=== PATIENT | female | born 1995 | race Caucasian/White ===

== ENCOUNTER 2018-01-11 21:46 | Emergency (ER) | payer OTHER ==
[~2018-01-11] VITALS: Ht 162.6 cm; Wt 68.9 kg
[2018-01-12] MEDS ORDERED: LIDOCAINE 2% VISCOUS 15 ML UDC PO ONE (00:30)
[2018-01-12] MEDS ORDERED: AZITHROMYCIN 250 MG TAB (ZITHROMAX) PO SCH (01:15)
[2018-01-12] MEDS ORDERED: ACYCLOVIR 400 MG TABLET (ZOVIRAX) PO ONE (01:15)
[2018-01-12] MEDS ORDERED: metroNIDAZOLE 500 MG (FLAGYL) TAB PO ONE (01:15)
[2018-01-12] MEDS ORDERED: LIDOCAINE 1% INJ 20 ML 20 ML VIAL INJ ONE ×2 (01:15→02:00)
[2018-01-12] MEDS ORDERED: cefTRIAXone 1 GM/10 ML for IV (ROCEPHIN) IM ONE (01:15)
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
[2018-01-12] MEDS ORDERED: ACYC400T PO (01:41)
[2018-01-12] MEDS ORDERED: cefTRIAXone 1 GM/10 ML for IV (ROCEPHIN) IM STA (01:52)
[2018-01-12] MEDS ORDERED: cefTRIAXone 1,000 MG/2.86 ml vial (IM ONLY) IM ONE (02:15)
[2018-01-12 02:21] VITALS: BP 116/88
== END 2018-01-12 02:21 | disposition home or self-care (01) ==
LOC: EDUNIT# 21:46 → ER 21:48
DX: A59.01 Trichomonal vulvovaginitis (principal); Z90.89 Acquired absence of other organs; Z87.19 Personal history of other diseases of the digestive system
CPT/HCPCS: 36415; 84703; 87070; 87210; 87252; 87491; 87591; 99284

== ENCOUNTER 2020-04-25 15:55 | Inpatient (IN) | payer BC, OTHER ==
[~2020-04-25] VITALS: Ht 162.6 cm; Wt 58.4 kg
[~2020-04-25 15:55] MED LIST: ACYC400T PO
--- NOTE | 2020-04-25 16:32 | NUR ---
SONU THORNE presented to unit via WHEELCHAIR from HOME, accompanied by STAFF, with c/o HYPEREMESIS. SONU THORNE weighed, gowned, voided, and to bed. EFHM and TOCO applied, VS taken. SONU THORNE oriented to bed controls, call light, TV, heat, and A/C controls.
[2020-04-25 16:40] VITALS: BP 109/66
[2020-04-25] MEDS ORDERED: PROMETHAZINE INJ 25 MG/ML (PHENERGAN) AMP IVP PRN (16:45)
[2020-04-25 17:05] VITALS: BP 109/66
[2020-04-25] MEDS: LACTATED RINGERS 1,000 ML IV SCH ×2 (17:06→23:41)
[2020-04-25] MEDS: ONDANSETRON 4 MG/2 ML (SDV) Z0FRAN IV PRN (17:07)
[2020-04-25 17:14] LABS: BASOPHILS % (AUTO) 0 % (0-10); EOSINOPHILS % (AUTO) 0 % (0-10); HEMATOCRIT 39 % (35-52); HEMOGLOBIN 13.6 g/dL (11.5-16.0); LYMPHOCYTES # (AUTO) 1.2 10^3/uL (1.0-4.0); LYMPHOCYTES % (AUTO) 9 % (12-44); MEAN CORPUSCULAR HEMOGLOBIN 31 pg (25-34); MEAN CORPUSCULAR HGB CONC 35 g/dL (32-36); MEAN CORPUSCULAR VOLUME 88 fL (80-99); MEAN PLATELET VOLUME 11.3 fL (9.0-12.2); MONOCYTES # (AUTO) 0.5 10^3/uL (0.0-1.0); MONOCYTES % (AUTO) 4 % (0-12); NEUTROPHILS # (AUTO) 11.9 10^3/uL (1.8-7.8); NEUTROPHILS % (AUTO) 87 % (42-75); PLATELET COUNT 298 10^3/uL (130-400); WHITE BLOOD COUNT 13.7 10^3/uL (4.3-11.0)
[2020-04-25 17:24] LABS: ALBUMIN 4.7 GM/DL (3.2-4.5); CHLORIDE 101 MMOL/L (98-107); POTASSIUM 3.4 MMOL/L (3.6-5.0); SODIUM 138 MMOL/L (135-145)
[2020-04-25 17:25] LABS: CALCIUM 9.6 MG/DL (8.5-10.1)
[2020-04-25 17:26] LABS: GLUCOSE 97 MG/DL (70-105)
[2020-04-25 17:27] LABS: TOTAL PROTEIN 7.7 GM/DL (6.4-8.2)
[2020-04-25 17:28] LABS: BILIRUBIN,TOTAL 1.7 MG/DL (0.1-1.0); CARBON DIOXIDE 25 MMOL/L (21-32)
[2020-04-25 17:30] LABS: ALKALINE PHOSPHATASE 56 U/L (40-136); CREATININE SERUM 0.75 MG/DL (0.60-1.30); GFR ESTIMATED > 60
[2020-04-25 17:31] LABS: BUN/CREATININE RATIO 25
[2020-04-25 17:33] LABS: ALANINE AMINOTRANSFERASE 32 U/L (0-55); MAGNESIUM 2.1 MG/DL (1.6-2.4)
[2020-04-25 17:41] LABS: LYMPHOCYTES % (MANUAL) 8 %; MONOCYTES % (MANUAL) 3 %; NEUTROPHILS % (MANUAL) 89 %; RBC MORPH NORMAL
--- NOTE | 2020-04-25 18:50 | History & Physical-OB/GYN ---
CHEYANNE CUNHA III MED STUDENT 04/25/20 1850: OB - Chief Complaint & HPI Date/Time Date of Admission: Date of Admission: Apr 25, 2020 at 16:32 Chief Complaint/History OB-Reason for Admission/Chief: Medical Complication (Hyperemesis with intractable nausea for 2-3 days) Hx : 1 Hx Last Menstrual Period: LMP on 03/15/2020 Gestational Age in Weeks: 6 Other reason for admission: Pt presented to clinic on 04/25/2020 2/2 intractable nausea with persistent vomit ing. She notes that she has been nauseous for about a week, but progressed to persistent vomiting 2-3 days ago. She notes that she is not able to keep any solid food or liquids down. She can eat/drink something and 5-10 minutes later she will be throwing it up. She has some associated sore throat that is likely 2/2 repetitive vomiting episodes. LMP was 03/15/2020. Pt notes a positive test at walk in clinic on 04/24/2020 giving estimated GA of 6w. She has had some lower abdominal pain, more localized to suprapubic region with 1 episode of spotting on 04/24/2020. Denies any other discharge at this time, no urinary symptoms, no SOB, no chest pain, no headache or subjective fever. Obtained bedside ultrasound in clinic today and had a gestational sac measuring 2.0cm x 1.6cm. Fetus might have been seen during this US, but not 100% certain. Allergies and Home Medications Allergies Coded Allergies: No Known Drug Allergies (Unverified , 01/12/18) Home Medications Acyclovir 400 Mg Tablet, 400 MG PO TID Prescribed by: ARDEN CAMACHO on 01/12/18 0141 OB - History Hx of Present Care: Yes Ultrasounds: No ultrasounds Medical Complications: Genitourinary (hx of gonorrhea and chlamydia treated in the last 6 months) Obstetrical History Hx : 1 Hx Termination: No Hx Multiple Gestation: No Hx Ectopic : No Hx Stillbirth: No Hx Complication: No Hx Induced Hypertens: No Hx Maternal Gestational Diabet: No Hx Hemorrhage: No Patient Past Medical History Pt has hx of previously treated STI in the last 1-2 years. Treated for Chlamydia and gonorrhea within the last 6 months. No previous . No known medical conditions at this time. Social History/Family History Alcohol Use: Denies Use Recreational Drug Use: Yes 2nd Hand Smoke Exposure: No OB - Admission Exam Physical Exam Vitals: Vital Signs 04/25/20 17:05 Temp 37.4 Pulse 124 Resp 16 B/P (MAP) 109/66 (80) Pulse Ox 99 O2 Delivery Room Air HEENT: NCAT Heart: Other (tachycardic on admission) Lungs: Clear Abdomen: Other (tenderness in suprapubic region) Extremities: Normal Reflexes: Normal Labs Laboratory Tests Test 04/25/20 17:00 Range/Units White Blood Count 13.7 H 4.3-11.0 10^3/uL Red Blood Count 4.46 3.80-5.11 10^6/uL Hemoglobin 13.6 11.5-16.0 g/dL Hematocrit 39 35-52 % Mean Corpuscular Volume 88 80-99 fL Mean Corpuscular Hemoglobin 31 25-34 pg Mean Corpuscular Hemoglobin Concent 35 32-36 g/dL Red Cell Distribution Width 12.5 10.0-14.5 % Platelet Count 298 130-400 10^3/uL Mean Platelet Volume 11.3 9.0-12.2 fL Immature Granulocyte % (Auto) 0 % Neutrophils (%) (Auto) 87 H 42-75 % Lymphocytes (%) (Auto) 9 L 12-44 % Monocytes (%) (Auto) 4 0-12 % Eosinophils (%) (Auto) 0 0-10 % Basophils (%) (Auto) 0 0-10 % Neutrophils # (Auto) 11.9 H 1.8-7.8 10^3/uL Lymphocytes # (Auto) 1.2 1.0-4.0 10^3/uL Monocytes # (Auto) 0.5 0.0-1.0 10^3/uL Eosinophils # (Auto) 0.0 0.0-0.3 10^3/uL Basophils # (Auto) 0.0 0.0-0.1 10^3/uL Immature Granulocyte # (Auto) 0.1 0.0-0.1 10^3/uL Neutrophils % (Manual) 89 % Lymphocytes % (Manual) 8 % Monocytes % (Manual) 3 % Blood Morphology Comment NORMAL Sodium Level 138 135-145 MMOL/L Potassium Level 3.4 L 3.6-5.0 MMOL/L Chloride Level 101 98-107 MMOL/L Carbon Dioxide Level 25 21-32 MMOL/L Anion Gap 12 5-14 MMOL/L Blood Urea Nitrogen 19 H 7-18 MG/DL Creatinine 0.75 0.60-1.30 MG/DL Estimat Glomerular Filtration Rate > 60 BUN/Creatinine Ratio 25 Glucose Level 97 70-105 MG/DL Calcium Level 9.6 8.5-10.1 MG/DL Corrected Calcium 8.5-10.1 MG/DL Magnesium Level 2.1 1.6-2.4 MG/DL Total Bilirubin 1.7 H 0.1-1.0 MG/DL Aspartate Amino Transf (AST/SGOT) 17 5-34 U/L Alanine Aminotransferase (ALT/SGPT) 32 0-55 U/L Alkaline Phosphatase 56 40-136 U/L Total Protein 7.7 6.4-8.2 GM/DL Albumin 4.7 H 3.2-4.5 GM/DL Thyroid Stimulating Hormone (TSH) 0.85 0.35-4.94 UIU/ML Human Chorionic Gonadotropin, Quant 05913 H <5 MIU/ML OB - Assessment/Plan/Diagnosis Assessment Assessment: observation Admission Dx Hyperemesis Admission Status: Observation Plan Plan: Expectant Management DEBI ESPINAL MD 04/25/20 2220: OB - Chief Complaint & HPI Date/Time Date seen by a Provider: Apr 25, 2020 Time Seen by a Provider: 17:25 Allergies and Home Medications Allergies Coded Allergies: No Known Drug Allergies (Unverified , 01/12/18) Home Medications Acyclovir 400 Mg Tablet, 400 MG PO TID Prescribed by: ARDEN CAMACHO on 01/12/18 0141 Patient Home Medication List Home Medication List Reviewed: Yes OB - History Hx of Present Ultrasounds: No ultrasounds Medical Complications: Genitourinary (hx of gonorrhea and chlamydia treated in the last 6 months) OB - Admission Exam Physical Exam HEENT: NCAT Heart: Other (tachycardic on admission) Lungs: Clear Extremities: Normal Reflexes: Normal OB - Assessment/Plan/Diagnosis Assessment Admission Status: Observation Plan Other Plan 24 yo G1 @ approx 6 week gestation that was admitted for dehydration due to hyperemesis gravidarium Plan - IVFs, encourage oral hydration - Labs Normal - STD check pending Supervisory-Addendum Brief Verification & Attestation Participated in pt care: history, physical Personally performed: exam Care discussed with: Medical Student Procedures: n/a Verification and Attestation of Medical Student E/M Service A medical student performed and documented this service in my presence. I reviewed and verified all information documented by the medical student and made modifications to such information, when appropriate. I personally performed the physical exam and medical decision making. Debi Espinal, Apr 25, 2020,22:18 CHEYANNE CUNHA III MED STUDENT Apr 25, 2020 18:50 DEBI ESPINAL MD Apr 25, 2020 22:20
[2020-04-25 19:33] LABS: BILIRUBIN,URINE NEGATIVE (NEGATIVE); CLARITY,URINE CLEAR; COLOR,URINE YELLOW; GLUCOSE, URINE (UA) NEGATIVE (NEGATIVE); KETONES,URINE 3+ (NEGATIVE); LEUKOCYTE ESTERASE ,URINE TRACE (NEGATIVE); NITRITE,URINE NEGATIVE (NEGATIVE); PH,URINE 6.5 (5-9); PROTEIN,URINE NEGATIVE (NEGATIVE)
[2020-04-25 19:43] LABS: BACTERIA,URINE NEGATIVE /HPF
[2020-04-25] MEDS ORDERED: PYRIDOXINE (VITAMIN B-6) 50 MG TABLET PO SCH (21:00)
[2020-04-25] MEDS ORDERED: diphenhydrAMINE 25 MG TAB (BENADRYL) PO SCH (21:00)
[2020-04-25] MEDS: ACETAMINOPHEN 500 MG TAB (TYLENOL) PO SCH (21:08)
[2020-04-25 23:41] VITALS: BP 103/59
[2020-04-26] MEDS: ACETAMINOPHEN 500 MG TAB (TYLENOL) PO SCH (06:04)
[2020-04-26] MEDS: LACTATED RINGERS 1,000 ML IV SCH (06:16)
[2020-04-26] MEDS: ONDANSETRON 4 MG/2 ML (SDV) Z0FRAN IV PRN (07:55)
[2020-04-26 08:12] VITALS: BP 96/62
--- NOTE | 2020-04-26 08:59 | Diagnostic Imaging Report ---
INDICATION: Pelvic pain with bleeding. FINDINGS: There does appear to be a gestational sac and yolk sac in the uterine cavity although no pole is demonstrated. This measures approximately 1.9 cm and would suggest a 6 week 6 day gestational size. The uterus measures 8.4 x 3.5 x 5.2 cm. The right ovary measures 2.8 x 1.8 x 3 cm. The left ovary measures 2.4 x 1.8 x 1.2 cm. No adnexal masses. There is a small amount of subchronic hemorrhage noted. IMPRESSION: Findings of what appears to be an intrauterine gestational sac and yolk sac measuring approximately 6 weeks 6 days in gestational size; however, no pole is demonstrated. Dictated by: Dictated on workstation # [id number]
--- NOTE | 2020-04-26 09:57 | Discharge Summary ---
Diagnosis/Chief Complaint Date of Admission Apr 25, 2020 at 16:32 Date of Discharge 04/26/2020 Admission Diagnosis Admission Diagnosis First Trimester 6 weeks gestation Hyperemesis Gravidarum Discharge Diagnosis See Above Discharge Summary-Simple/Stand Discharge Physical Examination Allergies: Coded Allergies: No Known Drug Allergies (Unverified , 01/12/18) Vitals & I&Os Vital Sign - Last 12Hours Date Time Temp Pulse Resp B/P (MAP) Pulse Ox O2 Delivery O2 Flow Rate FiO2 04/26/20 08:12 37.1 83 16 96/62 (73) 100 Room Air Intake and Output 04/26/20 00:00 Intake Total 1000 ml Balance 1000 ml General Appearance: Alert, Oriented X3, No Acute Distress HEENT: Mucous Memb Moist/[place] Respiratory: Clear to Auscultation, Normal Air Movement Cardiovascular: Regular Rate, No Murmurs Abdominal: Normal Bowel Sounds, Soft, No Tenderness, No Masses Extremities: No Edema, No Tenderness/Swelling Hospital Course Was the Problem List Reviewed?: Yes See final discharge diagnosis. Radiology Reviewed US done 04/26/20 yolk sac measuring 6.6 wga, no pole demonstrated yet, will need repeat in 2-4 weeks Discussion & Recommendations 24 yo G1 @ approx 6 week gestation here for dehydration and hyperemeisis. Patient doing well on IVFs and has not had any more vomiting overnight. Will have close f.u with Shad. Discharge Condition at discharge stable Instructions to patient/family Please see electronic discharge instructions given to patient. Discharge Medications Reviewed and agree with Discharge Medication list on patient's Discharge Instruction sheet Copy Copies To 1: IAN DOYLE MD, HOLLY R MD Apr 26, 2020 09:57
[2020-04-26] MEDS ORDERED: PYRI50TA PO (09:58)
--- NOTE | 2020-04-26 09:58 | Discharge Summary ---
Discharge [facility] Reconcile Patient Problems Problems Reviewed?: Yes Discharge Medications New, Converted or Re-Newed RX: Other (No new meds) New Medications: Pyridoxine HCl (Vitamin B-6) 50 Mg Tablet 25 MG PO TID, #30 TAB Continued Medications: Acyclovir (Acyclovir) 400 Mg Tablet 400 MG PO TID, #20 TAB Patient Instructions Goal/Follow Up Appt: f/u with Dr Kulkarni next week Activity & Diet Discharge Diet: Eat Small Frequent Meals Activity as Tolerated: Yes DEBI ESPINAL MD Apr 26, 2020 09:58
--- NOTE | 2020-04-26 10:30 | NUR ---
Discharge instructions given to pt and copy provided. PHS and appointment card given to pt. Pt verbalizes understanding.
--- NOTE | 2020-04-26 10:40 | NUR ---
Pt discharged from unit in stable condition via wheelchair accompanied by this rn and belongings.
[2020-04-26 12:00] LABS: AMPHETAMINE SCREEN, URINE NEGATIVE (NEGATIVE); BARBITURATE SCREEN URINE NEGATIVE (NEGATIVE); BENZODIAZEPINES SCREEN URINE NEGATIVE (NEGATIVE); CANNABINOID SCREEN, URINE POSITIVE (NEGATIVE); COCAINE SCREEN URINE NEGATIVE (NEGATIVE); METHADONE STAT NEGATIVE (NEGATIVE); METHAMPHETAMINE SCREEN URINE S NEGATIVE (NEGATIVE); OPIATE SCREEN URINE NEGATIVE (NEGATIVE); OXYCODONE STAT NEGATIVE (NEGATIVE); PROPOXYPHENE STAT NEGATIVE (NEGATIVE); TRICYCLIC ANTIDEPRESSANTS SCRE NEGATIVE (NEGATIVE)
== END 2020-04-26 10:40 | disposition home or self-care (01) | DRG 833 ==
LOC: LDRP 16:32
PROVIDERS: ADMIT Family Medicine; ATTEND Family Medicine
DX: O21.1 Hyperemesis gravidarum with metabolic disturbance (principal); Z3A.01 Less than 8 weeks gestation of pregnancy
CPT/HCPCS: 36415; 76817; 80053; 80306; 81000; 83735; 84443; 84702; 85007; 85027; 87491; 87591; 96361; 96374; 96376; 99211; G0378

== ENCOUNTER 2020-04-30 19:49 | Emergency (ER) | payer BC ==
[~2020-04-30] VITALS: Ht 167.1 cm; Wt 60.0 kg
[~2020-04-30 19:49] MED LIST changes: +PYRI50TA PO
[2020-04-30 20:09] LABS: BILIRUBIN,URINE NEGATIVE (NEGATIVE); CLARITY,URINE CLEAR; COLOR,URINE YELLOW; GLUCOSE, URINE (UA) NEGATIVE (NEGATIVE); KETONES,URINE 3+ (NEGATIVE); LEUKOCYTE ESTERASE ,URINE 1+ (NEGATIVE); NITRITE,URINE NEGATIVE (NEGATIVE); PROTEIN,URINE TRACE (NEGATIVE)
--- NOTE | 2020-04-30 20:14 | ED GU-Female ---
General Chief Complaint: Abdominal/GI Problems Stated Complaint: VOMITTING/WEAKNESS/6 WEEKS PREG. History of Present Illness Date Seen by Provider: Apr 30, 2020 Time Seen by Provider: 20:05 Initial Comments 24-year-old female approximately 6 weeks gestation presents for persistent nausea and vomiting. This is her first . She has been taking vitamin B6 with no improvement in her symptoms. She denies any spotting, she does report approximately 1 hour prior to arrival having some brown discharge when she wiped after urinating. No bright red or dark red blood noted. She had a transvaginal ultrasound on previous visit which showed an intrauterine sac but no pole. She has a follow-up appointment with Dr. Doyle in 3 days. She has not notified her of the symptoms. Patient previously admitted inpatient for similar complaints on 04/26/20 and given IV fluids, improved and was doing well until 24 hours ago when Nausea and vomiting returned. She has been taking sips of water or gatorade, but vomits frequently after. Hasn't been able to eat anything solid. Timing/Duration: yesterday Radiation: none Activities at Onset: none Associated Symptoms: No abdominal pain, No dysuria, No fever/chills; nausea/vomiting Allergies and Home Medications Allergies Coded Allergies: No Known Drug Allergies (Unverified , 01/12/18) Home Medications Acyclovir 400 Mg Tablet, 400 MG PO TID Prescribed by: ARDEN CAMACHO on 01/12/18 0141 Nitrofurantoin Monohyd/M-Cryst 100 Mg Capsule, 1 TAB PO BID Prescribed by: TONI KELLER on 04/30/20 214 Pyridoxine HCl 50 Mg Tablet, 25 MG PO TID Prescribed by: DEBI ESPINAL on 04/26/20 0958 Patient Home Medication List Home Medication List Reviewed: Yes Review of Systems Review of Systems Constitutional: see HPI, malaise, weakness Respiratory: no symptoms reported, see HPI Cardiovascular: no symptoms reported, see HPI Gastrointestinal: see HPI; No constipation, No diarrhea; nausea, vomiting Genitourinary: no symptoms reported, see HPI : Yes LMP: Mar 21, 2020 All Other Systemes Reviewed Negative Unless Noted: Yes Past Rhovzla-Ljngey-Erwykz Hx Past Med/Social Hx: Reviewed and Corrections made Patient Social History Drug of Choice: MARIJUANA 2nd Hand Smoke Exposure: No Recent Hopitalizations: No Seasonal Allergies Seasonal Allergies: No Past Medical History Surgeries: Yes ([place] teeth) Abdominal, Tonsillectomy Respiratory: No Cardiac: No Neurological: No Last Menstrual Period: Mar 21, 2020 Hx : 1 Hx Para: 0 Hx Total # of Abortions (Sp): 0 Genitourinary: No Gastrointestinal: Yes Esophagitis Musculoskeletal: No Endocrine: No HEENT: No Cancer: No Did You Recieve Any Treatments: No Psychosocial: No Integumentary: No Blood Disorders: No Physical Exam Vital Signs Vital Signs - First Documented 04/30/20 19:58 Temp 37.0 Pulse 68 Resp 20 B/P (MAP) 127/78 (94) O2 Delivery Room Air Capillary Refill : Height, Weight, BMI Height: 5'4.00" Weight: 152lbs. oz. 68.151550pm; 22.08 BMI Method:Stated General Appearance: WD/WN, mild distress HEENT: PERRL/EOMI, normal ENT inspection, TMs normal, pharynx normal, other (Oral mucosa pale but moist) Neck: non-tender, full range of motion, supple, normal inspection Cardiovascular: normal peripheral pulses, regular rate, rhythm; No tachycardia Respiratory: chest non-tender, lungs clear, normal breath sounds Gastrointestinal: normal bowel sounds, non tender, soft; No distended, No guarding, No rebound, No tenderness Back: normal inspection, no CVA tenderness Extremities: normal range of motion, non-tender, normal inspection, no pedal edema, no calf tenderness Neurologic/Psychiatric: no motor/sensory deficits, alert, normal mood/affect, oriented x 3 Skin: warm/dry, pallor Progress/Results/Core Measures Suspected Sepsis SIRS Temperature: Pulse: Respiratory Rate: Laboratory Tests 04/30/20 20:15: White Blood Count 12.9H Blood Pressure / Mean: Laboratory Tests 04/30/20 20:15: Creatinine 0.80, Platelet Count 310, Total Bilirubin 1.0 Results/Orders Lab Results Laboratory Tests Test 04/30/20 19:59 04/30/20 20:15 Range/Units Urine Color YELLOW Urine Clarity CLEAR Urine pH 6.0 5-9 Urine Specific [place] >=1.030 1.016-1.022 Urine Protein TRACE H NEGATIVE Urine Glucose (UA) NEGATIVE NEGATIVE Urine Ketones 3+ H NEGATIVE Urine Nitrite NEGATIVE NEGATIVE Urine Bilirubin NEGATIVE NEGATIVE Urine Urobilinogen 0.2 < = 1.0 MG/DL Urine Leukocyte Esterase 1+ H NEGATIVE Urine RBC (Auto) 3+ H NEGATIVE Urine RBC 5-10 H /HPF Urine WBC 10-25 H /HPF Urine Crystals PRESENT H /LPF Urine Amorphous Sediment FEW VINCENT URATES H /LPF Urine Bacteria FEW H /HPF Urine Casts NONE /LPF Urine Mucus LARGE H /LPF Urine Culture Indicated YES Urine Test POSITIVE NEGATIVE White Blood Count 12.9 H 4.3-11.0 10^3/uL Red Blood Count 4.89 3.80-5.11 10^6/uL Hemoglobin 14.9 11.5-16.0 g/dL Hematocrit 43 35-52 % Mean Corpuscular Volume 88 80-99 fL Mean Corpuscular Hemoglobin 31 25-34 pg Mean Corpuscular Hemoglobin Concent 35 32-36 g/dL Red Cell Distribution Width 12.2 10.0-14.5 % Platelet Count 310 130-400 10^3/uL Mean Platelet Volume 11.1 9.0-12.2 fL Immature Granulocyte % (Auto) 0 % Neutrophils (%) (Auto) 78 H 42-75 % Lymphocytes (%) (Auto) 18 12-44 % Monocytes (%) (Auto) 3 0-12 % Eosinophils (%) (Auto) 0 0-10 % Basophils (%) (Auto) 0 0-10 % Neutrophils # (Auto) 10.1 H 1.8-7.8 10^3/uL Lymphocytes # (Auto) 2.3 1.0-4.0 10^3/uL Monocytes # (Auto) 0.4 0.0-1.0 10^3/uL Eosinophils # (Auto) 0.1 0.0-0.3 10^3/uL Basophils # (Auto) 0.0 0.0-0.1 10^3/uL Immature Granulocyte # (Auto) 0.0 0.0-0.1 10^3/uL Sodium Level 140 135-145 MMOL/L Potassium Level 3.5 L 3.6-5.0 MMOL/L Chloride Level 103 98-107 MMOL/L Carbon Dioxide Level 18 L 21-32 MMOL/L Anion Gap 19 H 5-14 MMOL/L Blood Urea Nitrogen 10 7-18 MG/DL Creatinine 0.80 0.60-1.30 MG/DL Estimat Glomerular Filtration Rate > 60 BUN/Creatinine Ratio 13 Glucose Level 101 70-105 MG/DL Calcium Level 10.0 8.5-10.1 MG/DL Corrected Calcium 8.5-10.1 MG/DL Total Bilirubin 1.0 0.1-1.0 MG/DL Aspartate Amino Transf (AST/SGOT) 14 5-34 U/L Alanine Aminotransferase (ALT/SGPT) 25 0-55 U/L Alkaline Phosphatase 53 40-136 U/L Total Protein 8.1 6.4-8.2 GM/DL Albumin 4.9 H 3.2-4.5 GM/DL Human Chorionic Gonadotropin, Quant [id number] H <5 MIU/ML My Orders Orders - TONI KELLER Ua Culture If Indicated (04/30/20 19:56) Cbc With Automated Diff (04/30/20 20:01) Comprehensive Metabolic Panel (04/30/20 20:01) Hcg,Qualitative Urine (04/30/20 20:01) Ondansetron Injection (Zofran Injectio (04/30/20 20:15) Ed Iv/Invasive Line Start (04/30/20 20:01) Ns Iv 1000 Ml (Sodium Chloride 0.9%) (04/30/20 20:15) Hcg,Quantitative (04/30/20 20:11) Abo Rh Type (04/30/20 20:11) Urine Culture (04/30/20 19:59) Ed Iv/Invasive Line Start (04/30/20 20:29) Ns Iv 1000 Ml (Sodium Chloride 0.9%) (04/30/20 20:30) Rx-Ondansetron Po (Rx-Zofran Po) (04/30/20 20:55) Ceftriaxone For Iv Use (Rocephin For I (04/30/20 21:00) Promethazine Injection (Phenergan Injec (04/30/20 22:00) Medications Given in ED Current Medications Medications Dose Ordered Sig/Fide Route Start Time Stop Time Status Last Admin Dose Admin Ceftriaxone Sodium 1000 mg/ Sterile Water 10 ml @ 200 mls/hr ONCE ONCE IV 04/30/20 21:00 04/30/20 21:02 DC 04/30/20 21:05 200 MLS/HR Ondansetron HCl 4 mg ONCE ONCE IVP 1/24/21 20:15 04/30/20 20:16 DC 04/30/20 20:17 4 MG Vital Signs/I&O 04/30/20 19:58 Temp 37.0 Pulse 68 Resp 20 B/P (MAP) 127/78 (94) O2 Delivery Room Air Capillary Refill : Progress Note : Time: 20:05 Progress Note Patient seen and evaluated, will give normal saline 1 L per IV, Zofran 4 mg IV, labs and continue to monitor. Patient complains of being extremely thirsty, ice chips given bed discouraged from taking many of them. 2044 Patient taking ice chips but continues to have nausea no vomiting since admission to the emergency department. Will give 2nd liter of NS. 2109 Patient wants to try sips of sprite, continues to have nausea but has not vomited. Rocephin 1gm IV for UTI. 2139 Patient continues to have mild nausea but has not vomited since admission. Phenergan 12.5 mg IV. Discharge instructions and return precautions reviewed with the patient in detail. Departure Impression Primary Impression: Hyperemesis gravidarum Additional Impression: Urinary tract infection Qualified Codes: N30.01 - Acute cystitis with hematuria Disposition: HOME, SELF-CARE Condition: Improved Departure-Patient Inst. Decision time for Depature: 21:40 Referrals: IAN DOYLE MD, PANKAJ K MD (PCP/Family) Primary Care Physician Patient Instructions: Nausea and Vomiting of (DC), Urinary Tract Infection, Adult (DC) Add. Discharge Instructions: Small sips of sprite, julia joselito and gatorade or pedialyte. Try toast and saltines, avoid anything fried, spicey or greasy. Rest. Follow up with Dr. Doyle, if symptoms do not improve or worsen. Use Zofran every 6 hours for nausea or vomiting. Continue taking the Vit B6 Go to [facility], if symptoms are not better tomorrow. Take antibiotics, as prescribed. Return to the emergency dept for new, urgent health care needs. All discharge instructions reviewed with patient and/or family. Voiced understanding. Scripts Nitrofurantoin Monohyd/M-Cryst (Macrobid 100 mg Capsule) 100 Mg Capsule 1 TAB PO BID, #10 CAP 0 Refills Prov: ARIANNATONI 04/30/20 Copy Copies To 1: IAN DOYLE MD, AMY ARNP Apr 30, 2020 20:14
[2020-04-30] MEDS ORDERED: ONDANSETRON 4 MG/2 ML (SDV) Z0FRAN IVP ONE (20:15)
[2020-04-30] MEDS ORDERED: NS IV 1000 ML 1,000 ML IV SCH ×2 (20:15→20:30)
[2020-04-30 20:21] LABS: BASOPHILS % (AUTO) 0 % (0-10); EOSINOPHILS # (AUTO) 0.1 10^3/uL (0.0-0.3); EOSINOPHILS % (AUTO) 0 % (0-10); HEMATOCRIT 43 % (35-52); HEMOGLOBIN 14.9 g/dL (11.5-16.0); LYMPHOCYTES # (AUTO) 2.3 10^3/uL (1.0-4.0); LYMPHOCYTES % (AUTO) 18 % (12-44); MEAN CORPUSCULAR HEMOGLOBIN 31 pg (25-34); MEAN CORPUSCULAR HGB CONC 35 g/dL (32-36); MEAN CORPUSCULAR VOLUME 88 fL (80-99); MEAN PLATELET VOLUME 11.1 fL (9.0-12.2); MONOCYTES # (AUTO) 0.4 10^3/uL (0.0-1.0); MONOCYTES % (AUTO) 3 % (0-12); NEUTROPHILS # (AUTO) 10.1 10^3/uL (1.8-7.8); NEUTROPHILS % (AUTO) 78 % (42-75); PLATELET COUNT 310 10^3/uL (130-400); WHITE BLOOD COUNT 12.9 10^3/uL (4.3-11.0)
[2020-04-30 20:24] LABS: AMORPHOUS SEDIMENT,UR FEW AMOR URATES /LPF; BACTERIA,URINE FEW /HPF
[2020-04-30 20:41] LABS: ALANINE AMINOTRANSFERASE 25 U/L (0-55); ALBUMIN 4.9 GM/DL (3.2-4.5); ALKALINE PHOSPHATASE 53 U/L (40-136); BUN/CREATININE RATIO 13; CARBON DIOXIDE 18 MMOL/L (21-32); CHLORIDE 103 MMOL/L (98-107); GFR ESTIMATED > 60; GLUCOSE 101 MG/DL (70-105); POTASSIUM 3.5 MMOL/L (3.6-5.0); SODIUM 140 MMOL/L (135-145); TOTAL PROTEIN 8.1 GM/DL (6.4-8.2)
[2020-04-30] MEDS ORDERED: RX-ONDANSETRON 4 MG ODT (ZOFRAN) PPK #4 PO STA (20:55)
[2020-04-30] MEDS ORDERED: cefTRIAXone FOR IV USE 1,000 MG in WATER (STERILE) FOR INJECTION 10 ML IV ONE (21:00)
[2020-04-30] MEDS ORDERED: NITR-65 PO (21:44)
[2020-04-30 21:59] VITALS: BP 125/77
[2020-04-30] MEDS ORDERED: PROMETHAZINE INJ 25 MG/ML (PHENERGAN) AMP IVP ONE (22:00)
== END 2020-04-30 21:59 | disposition home or self-care (01) ==
LOC: EDUNIT# 19:49 → ER 19:51
DX: O21.0 Mild hyperemesis gravidarum (principal); O23.41 Unspecified infection of urinary tract in pregnancy, first trimester; Z3A.01 Less than 8 weeks gestation of pregnancy
CPT/HCPCS: 36415; 80053; 81000; 84702; 84703; 85025; 86900; 86901; 87088

== ENCOUNTER 2020-05-06 22:48 | Emergency (ER) | payer BC ==
[~2020-05-06] VITALS: Ht 165 cm; Wt 60.0 kg
[~2020-05-06 22:48] MED LIST changes: +NITR-65 PO
[2020-05-06] MEDS ORDERED: LACTATED RINGERS 1,000 ML IV ONE (23:00)
[2020-05-06 23:14] LABS: BILIRUBIN,URINE 1+ (NEGATIVE); CLARITY,URINE CLEAR; COLOR,URINE YELLOW; GLUCOSE, URINE (UA) NEGATIVE (NEGATIVE); KETONES,URINE 3+ (NEGATIVE); LEUKOCYTE ESTERASE ,URINE NEGATIVE (NEGATIVE); NITRITE,URINE NEGATIVE (NEGATIVE); PROTEIN,URINE 1+ (NEGATIVE)
[2020-05-06 23:27] LABS: BACTERIA,URINE FEW /HPF; RBC,URINE 0-2 /HPF
[2020-05-06 23:28] LABS: SQUAMOUS EPITHELIAL CELL,UR >50 /HPF
[2020-05-06 23:31] LABS: BASOPHILS # (AUTO) 0.1 10^3/uL (0.0-0.1); BASOPHILS % (AUTO) 0 % (0-10); EOSINOPHILS % (AUTO) 0 % (0-10); HEMATOCRIT 40 % (35-52); HEMOGLOBIN 13.5 g/dL (11.5-16.0); LYMPHOCYTES # (AUTO) 2.3 10^3/uL (1.0-4.0); LYMPHOCYTES % (AUTO) 17 % (12-44); MEAN CORPUSCULAR HEMOGLOBIN 30 pg (25-34); MEAN CORPUSCULAR HGB CONC 34 g/dL (32-36); MEAN CORPUSCULAR VOLUME 89 fL (80-99); MEAN PLATELET VOLUME 10.8 fL (9.0-12.2); MONOCYTES # (AUTO) 0.5 10^3/uL (0.0-1.0); MONOCYTES % (AUTO) 4 % (0-12); NEUTROPHILS # (AUTO) 10.2 10^3/uL (1.8-7.8); NEUTROPHILS % (AUTO) 78 % (42-75); PLATELET COUNT 325 10^3/uL (130-400); WHITE BLOOD COUNT 13.1 10^3/uL (4.3-11.0)
[2020-05-06 23:35] LABS: ALBUMIN 4.6 GM/DL (3.2-4.5); CHLORIDE 103 MMOL/L (98-107); POTASSIUM 3.5 MMOL/L (3.6-5.0); SODIUM 138 MMOL/L (135-145)
[2020-05-06 23:36] LABS: AMYLASE 67 U/L (25-125)
[2020-05-06 23:37] LABS: CALCIUM 9.7 MG/DL (8.5-10.1)
[2020-05-06 23:38] LABS: GLUCOSE 84 MG/DL (70-105); TOTAL PROTEIN 7.6 GM/DL (6.4-8.2)
[2020-05-06 23:39] LABS: CARBON DIOXIDE 19 MMOL/L (21-32)
[2020-05-06 23:40] LABS: BILIRUBIN,TOTAL 1.3 MG/DL (0.1-1.0)
[2020-05-06 23:41] LABS: ALKALINE PHOSPHATASE 45 U/L (40-136); CREATININE SERUM 0.68 MG/DL (0.60-1.30); GFR ESTIMATED > 60
[2020-05-06 23:42] LABS: BUN/CREATININE RATIO 18
[2020-05-06 23:44] LABS: ALANINE AMINOTRANSFERASE 18 U/L (0-55)
[2020-05-06 23:45] LABS: LIPASE 17 U/L (8-78)
[2020-05-07] MEDS ORDERED: LACTATED RINGERS 1,000 ML IV ONE (00:15)
[2020-05-07] MEDS ORDERED: ONDANSETRON 4 MG/2 ML (SDV) Z0FRAN IVP ONE (00:45)
[2020-05-07] MEDS ORDERED: DOXY1TAB3 PO ×2 (01:18→01:37)
[2020-05-07] MEDS ORDERED: SUCR1TAB36 PO ×2 (01:18→01:37)
--- NOTE | 2020-05-07 01:18 | ED GI ---
General Chief Complaint: Abdominal/GI Problems Stated Complaint: DEHYDRATED;DIZZY;NAUSEA;APPROX 7 WKS PRG Nursing Triage Note: TO ED VIA POV WITH C/O ABD PAIN, NAUSEA, . Sepsis Screen: No Definite Risk Source of Information: Patient History of Present Illness Date Seen by Provider: May 07, 2020 Time Seen by Provider: 00:52 Initial Comments PT ARRIVES VIA POV FROM HOME PT STATES SHE IS 7 WEEKS AND HAS HAD NAUSEA AND VOMITING FOR THE LAST FEW DAYS, AND HAS NOT BEEN ABLE TO KEEP ANYTHING DOWN SINCE 1800 YESTERDAY/Friday05/05/20 HAS VOMITED BETWEEN 5 AND 10 TIMES, PLUS DRY HEAVES NO DIARRHEA HAS HAD DECREASED URINE OUTPUT--ONLY VOIDED TWICE TODAY C/O INTERMITTENT LOWER ABDOMINAL CRAMPING NO FEVER/SWEATS/CHILLS LMP 03/15/20--NORMAL. NO CONTROL PT IS AB0 HAS FIRST OB APPOINTMENT ON FRIDAY AT [facility] PT HAS BEEN TAKING VITAMINS "GUMMIES" PCP: [facility], DR. DOYLE, AND ALSO DR. ALEXANDER IN [facility] Allergies and Home Medications Allergies Coded Allergies: No Known Drug Allergies (Unverified , 01/12/18) Home Medications Acyclovir 400 Mg Tablet, 400 MG PO TID Prescribed by: ARDEN CAMACHO on 01/12/18 0141 Doxylamine/Pyridoxine HCl 1 Each Tablet.dr, 2 EACH PO HS Prescribed by: BONITA HINTON on 05/07/20117 Nitrofurantoin Monohyd/M-Cryst 100 Mg Capsule, 1 TAB PO BID Prescribed by: TONI KELLER on 04/30/202143 Pyridoxine HCl 50 Mg Tablet, 25 MG PO TID Prescribed by: DEBI ESPINAL on 04/26/20 0958 Sucralfate 1 Gm Tablet, 1 GM PO QID Prescribed by: BONITA HINTON on 05/07/20117 Patient Home Medication List Home Medication List Reviewed: Yes Review of Systems Review of Systems Constitutional: no symptoms reported Respiratory: No Symptoms Reported Cardiovascular: No Symptoms Reported Gastrointestinal: See HPI, Abdominal Pain, Nausea, Poor Appetite, Poor Fluid Intake, Vomiting Genitourinary: See HPI; Denies Burning Musculoskeletal: no symptoms reported; No back pain Skin: no symptoms reported Psychiatric/Neurological: No Symptoms Reported Endocrine: No Symptoms Reported Hematologic/Lymphatic: No Symptoms Reported Past Zgouqbi-Xpmjwk-Ksveoi Hx Past Med/Social Hx: Reviewed and Corrections made Patient Social History Alcohol Use: Denies Use Drug of Choice: MARIJUANA Smoking Status: Never a Smoker 2nd Hand Smoke Exposure: No Recent Infectious Disease Expo: No Recent Hopitalizations: No Substance type: Marijuana Seasonal Allergies Seasonal Allergies: No Past Medical History Surgeries: Yes ([place] teeth) Tonsillectomy Respiratory: No Cardiac: No Neurological: No Genitourinary: No Gastrointestinal: Yes Esophagitis Musculoskeletal: No Endocrine: No HEENT: No Cancer: No Did You Recieve Any Treatments: No Psychosocial: No Integumentary: No Blood Disorders: No Physical Exam Vital Signs Vital Signs - First Documented 05/06/20 23:07 Temp 36.9 Pulse 80 Resp 16 B/P (MAP) 116/78 (91) O2 Delivery Room Air Capillary Refill : Less Than 3 Seconds Height/Weight/BMI Height: 5'4.00" Weight: 152lbs. oz. 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 as tested, no motor/sensory deficits, alert, normal mood/affect, oriented x 3 Skin: normal color, warm/dry Progress/Results/Core Measures Results/Orders Lab Results Laboratory Tests Test 05/06/20 23:05 05/06/20 23:20 Range/Units Urine Color YELLOW Urine Clarity CLEAR Urine pH 6.0 5-9 Urine Specific [place] >=1.030 1.016-1.022 Urine Protein 1+ H NEGATIVE Urine Glucose (UA) NEGATIVE NEGATIVE Urine Ketones 3+ H NEGATIVE Urine Nitrite NEGATIVE NEGATIVE Urine Bilirubin 1+ H NEGATIVE Urine Urobilinogen 0.2 < = 1.0 MG/DL Urine Leukocyte Esterase NEGATIVE NEGATIVE Urine RBC (Auto) NEGATIVE NEGATIVE Urine RBC 0-2 /HPF Urine WBC 2-5 /HPF Urine Squamous Epithelial Cells >50 H /HPF Urine Crystals NONE /LPF Urine Bacteria FEW H /HPF Urine Casts NONE /LPF Urine Mucus LARGE H /LPF Urine Culture Indicated YES White Blood Count 13.1 H 4.3-11.0 10^3/uL Red Blood Count 4.50 3.80-5.11 10^6/uL Hemoglobin 13.5 11.5-16.0 g/dL Hematocrit 40 35-52 % Mean Corpuscular Volume 89 80-99 fL Mean Corpuscular Hemoglobin 30 25-34 pg Mean Corpuscular Hemoglobin Concent 34 32-36 g/dL Red Cell Distribution Width 12.1 10.0-14.5 % Platelet Count 325 130-400 10^3/uL Mean Platelet Volume 10.8 9.0-12.2 fL Immature Granulocyte % (Auto) 0 % Neutrophils (%) (Auto) 78 H 42-75 % Lymphocytes (%) (Auto) 17 12-44 % Monocytes (%) (Auto) 4 0-12 % Eosinophils (%) (Auto) 0 0-10 % Basophils (%) (Auto) 0 0-10 % Neutrophils # (Auto) 10.2 H 1.8-7.8 10^3/uL Lymphocytes # (Auto) 2.3 1.0-4.0 10^3/uL Monocytes # (Auto) 0.5 0.0-1.0 10^3/uL Eosinophils # (Auto) 0.0 0.0-0.3 10^3/uL Basophils # (Auto) 0.1 0.0-0.1 10^3/uL Immature Granulocyte # (Auto) 0.1 0.0-0.1 10^3/uL Sodium Level 138 135-145 MMOL/L Potassium Level 3.5 L 3.6-5.0 MMOL/L Chloride Level 103 98-107 MMOL/L Carbon Dioxide Level 19 L 21-32 MMOL/L Anion Gap 16 H 5-14 MMOL/L Blood Urea Nitrogen 12 7-18 MG/DL Creatinine 0.68 0.60-1.30 MG/DL Estimat Glomerular Filtration Rate > 60 BUN/Creatinine Ratio 18 Glucose Level 84 70-105 MG/DL Calcium Level 9.7 8.5-10.1 MG/DL Corrected Calcium 8.5-10.1 MG/DL Total Bilirubin 1.3 H 0.1-1.0 MG/DL Aspartate Amino Transf (AST/SGOT) 14 5-34 U/L Alanine Aminotransferase (ALT/SGPT) 18 0-55 U/L Alkaline Phosphatase 45 40-136 U/L Total Protein 7.6 6.4-8.2 GM/DL Albumin 4.6 H 3.2-4.5 GM/DL Amylase Level 67 25-125 U/L Lipase 17 8-78 U/L Human Chorionic Gonadotropin, Quant [id number] H <5 MIU/ML My Orders Orders - BONITA HINTON DO Ed Iv/Invasive Line Start (05/06/20 22:59) Amylase (05/06/20 22:59) Cbc With Automated Diff (05/06/20 22:59) Comprehensive Metabolic Panel (05/06/20 22:59) Hcg,Quantitative (05/06/20 22:59) Lipase (05/06/20 22:59) Ua Culture If Indicated (05/06/20 22:59) Ed Iv/Invasive Line Start (05/06/20 22:59) Lactated Ringers (Lr 1000 Ml Iv Solution (05/06/20 23:00) Urine Culture (05/06/20 23:05) Ed Iv/Invasive Line Start (05/07/20 00:08) Lactated Ringers (Lr 1000 Ml Iv Solution (05/07/20 00:15) Ondansetron Injection (Zofran Injectio (05/07/20 00:45) Medications Given in ED Current Medications Medications Dose Ordered Sig/Fide Route Start Time Stop Time Status Last Admin Dose Admin Lactated Ringer's 1,000 ml @ 0 mls/hr Q0M ONCE IV 05/06/20 23:00 05/06/20 23:01 DC 05/06/20 23:25 999 MLS/HR Lactated Ringer's 1,000 ml @ 0 mls/hr Q0M ONCE IV 05/07/20 00:15 05/07/20 00:16 DC 05/07/20 00:17 999 MLS/HR Ondansetron HCl 4 mg ONCE ONCE IVP 05/07/20 00:45 05/07/20 00:46 DC 05/07/20 01:03 4 MG Vital Signs/I&O 05/06/20 23:07 Temp 36.9 Pulse 80 Resp 16 B/P (MAP) 116/78 (91) O2 Delivery Room Air Blood Pressure Mean: 91 Progress Progress Note : Progress Note GIVEN IV FLUIDS AND ZOFRAN--NO VOMITING DURING ER STAY NAUSEA IMPROVED, AND CRAMPING RESOLVED AT DISMISSAL PT ABLE TO TOLERATE ICE CHIPS/SIPS OF WATER Departure Impression Primary Impression: NAUSEA AND VOMITING IN EARLY Additional Impression: 7 weeks gestation of Disposition: HOME, SELF-CARE Condition: Improved Departure-Patient Inst. Referrals: IAN DOYLE MD, PANKAJ K MD (PCP/Family) Primary Care Physician Patient Instructions: Morning Sickness (DC) Add. Discharge Instructions: CLEAR LIQUIDS--WATER, BROTH, JELLO, GATORADE BRATS DIET--BANANAS, RICE, APPLESAUCE, TOAST, SALTINES KEEP YOUR APPOINTMENT ON FRIDAY All discharge instructions reviewed with patient and/or family. Voiced understanding. Scripts Sucralfate (Carafate) 1 Gm Tablet 1 GM PO QID, #60 TAB Prov: BONITA HINTON DO 05/07/20 Doxylamine/Pyridoxine HCl (Selma Villarreal 10-10 mg Tablet) 1 Each Tablet.dr 2 EACH PO HS, #60 TAB Prov: BONITA HINTON DO 05/07/20 BONITA HINTON DO May 07, 2020 01:18
[2020-05-07 01:43] VITALS: BP 120/82
[2020-05-07 01:48] LABS: AMPHETAMINE SCREEN, URINE NEGATIVE (NEGATIVE); BARBITURATE SCREEN URINE NEGATIVE (NEGATIVE); BENZODIAZEPINES SCREEN URINE NEGATIVE (NEGATIVE); CANNABINOID SCREEN, URINE POSITIVE (NEGATIVE); COCAINE SCREEN URINE NEGATIVE (NEGATIVE); METHADONE STAT NEGATIVE (NEGATIVE); METHAMPHETAMINE SCREEN URINE S NEGATIVE (NEGATIVE); OPIATE SCREEN URINE NEGATIVE (NEGATIVE); OXYCODONE STAT NEGATIVE (NEGATIVE); PROPOXYPHENE STAT NEGATIVE (NEGATIVE); TRICYCLIC ANTIDEPRESSANTS SCRE NEGATIVE (NEGATIVE)
== END 2020-05-07 01:43 | disposition home or self-care (01) ==
LOC: EDUNIT# 22:48 → ER 22:52
DX: O21.0 Mild hyperemesis gravidarum (principal); Z3A.01 Less than 8 weeks gestation of pregnancy
CPT/HCPCS: 36415; 80053; 80306; 81000; 82150; 83690; 84702; 85025; 87077; 87088

== ENCOUNTER → 2020-05-08 | Outpatient (CLI) | payer BC ==
[~2020-05-08] MED LIST changes: +DOXY1TAB3 PO; +SUCR1TAB36 PO
--- NOTE | 2020-05-08 11:08 | Diagnostic Imaging Report ---
PROCEDURE: US OB SINGLE FETUS <14 WKS. TECHNIQUE: Multiple real-time grayscale images were obtained over the gravid uterus in various projections. INDICATION: Early . COMPARISON: Correlation is made with prior ultrasound from 04/26/2020. FINDINGS: There is an intrauterine gestational sac containing a pole consistent with approximately 8 weeks 0 days gestation. heart rate was recorded at 163 bpm. No dylan-gestational sac hemorrhage is identified. Adnexa are unremarkable. No adnexal mass or free fluid is seen. IMPRESSION: Single live IUP 8 weeks 0 days gestational age with estimated date of confinement sonographically of 12/18/2020. No complicating features are detected. Dictated by: Dictated on workstation # [id number]
== END ==
LOC: RAD 09:41
PROVIDERS: ATTEND Family Medicine
DX: O26.891 Other specified pregnancy related conditions, first trimester (principal); Z3A.08 8 weeks gestation of pregnancy
CPT/HCPCS: 76801

== ENCOUNTER → 2020-08-02 | Outpatient (CLI) | payer BC, MEDICAID, OTHER ==
[~2020-08-02] MED LIST changes: -ACYC400T PO; +ACYC400T21 PO; +PROM25TA14 PO
--- NOTE | 2020-08-02 13:56 | Diagnostic Imaging Report ---
INDICATION: survey. TECHNIQUE: Multiple Real-time grayscale images were obtained over the gravid uterus. COMPARISON: 05/08/2020. FINDINGS: There is a single live fetus in a breech presentation. The heart rate was recorded at 149 BPM. The placenta is posterior. The amniotic fluid volume is normal. The survey demonstrates the kidneys, bladder, and stomach to be unremarkable. The brain is unremarkable. There is a four-chamber heart. There is a three-vessel cord with normal insertion. The spine is unremarkable. Biometrical measurements are as follows: Biparietal 4.32 cm, age 19 weeks 1 days. Head circumference 17.13 cm, age 19 weeks 6 days. Abdominal circumference 15.10 cm, age 20 weeks 3 days. Femur length 3.14 cm, age 19 weeks 6 days. Sonographic estimate age: 19 weeks 6 days. Sonographic estimated date of delivery: 12/21/2020. Estimated Weight: 326 gm (+/- 48 gm). LMP percentile: 45%. heart rate: 149 beats per minute. number: 1 of 1. IMPRESSION: Single live IUP of approximately 20 weeks gestational age demonstrating normal interval growth when compared with the prior exam. No complicating features are detected. Dictated by: Dictated on workstation # [id number]
== END ==
LOC: RAD 09:39
PROVIDERS: ATTEND Obstetrics & Gynecology
DX: Z34.02 Encounter for supervision of normal first pregnancy, second trimester (principal); Z3A.19 19 weeks gestation of pregnancy
CPT/HCPCS: 76805

== ENCOUNTER 2020-08-03 20:51 | Emergency (ER) | payer BC, MEDICAID ==
[~2020-08-03] VITALS: Ht 162.6 cm; Wt 60.0 kg
[~2020-08-03 20:51] MED LIST changes: -PROM25TA14 PO
[2020-08-03] MEDS ORDERED: ONDANSETRON 4 MG/2 ML (SDV) Z0FRAN ONE (21:04)
[2020-08-03] MEDS ORDERED: LACTATED RINGERS 1,000 ML IV ONE ×2 (21:04→21:15)
[2020-08-03] MEDS ORDERED: ONDANSETRON 4 MG/2 ML (SDV) Z0FRAN IVP ONE (21:15)
[2020-08-03 21:33] LABS: BASOPHILS % (AUTO) 0 % (0-10); EOSINOPHILS % (AUTO) 0 % (0-10); HEMATOCRIT 38 % (35-52); HEMOGLOBIN 12.9 g/dL (11.5-16.0); LYMPHOCYTES # (AUTO) 1.9 10^3/uL (1.0-4.0); LYMPHOCYTES % (AUTO) 16 % (12-44); MEAN CORPUSCULAR HEMOGLOBIN 31 pg (25-34); MEAN CORPUSCULAR HGB CONC 34 g/dL (32-36); MEAN CORPUSCULAR VOLUME 90 fL (80-99); MEAN PLATELET VOLUME 10.7 fL (9.0-12.2); MONOCYTES # (AUTO) 0.4 10^3/uL (0.0-1.0); MONOCYTES % (AUTO) 3 % (0-12); NEUTROPHILS # (AUTO) 9.5 10^3/uL (1.8-7.8); NEUTROPHILS % (AUTO) 80 % (42-75); PLATELET COUNT 306 10^3/uL (130-400)
[2020-08-03 21:51] LABS: INR 0.9 (0.8-1.4); PROTHROMBIN TIME PATIENT 12.2 SEC (12.2-14.7)
[2020-08-03 22:01] LABS: ALANINE AMINOTRANSFERASE 34 U/L (0-55); ALKALINE PHOSPHATASE 57 U/L (40-136); BILIRUBIN,TOTAL 0.9 MG/DL (0.1-1.0); BUN/CREATININE RATIO 18; CALCIUM 9.2 MG/DL (8.5-10.1); CARBON DIOXIDE 17 MMOL/L (21-32); CHLORIDE 105 MMOL/L (98-107); CREATININE SERUM 0.62 MG/DL (0.60-1.30); ERYTHROCYTE SEDIMENTATION RATE 39 MM/HR (0-20); GFR ESTIMATED > 60; GLUCOSE 96 MG/DL (70-105); MAGNESIUM 1.7 MG/DL (1.6-2.4); POTASSIUM 3.3 MMOL/L (3.6-5.0); SODIUM 136 MMOL/L (135-145); TOTAL PROTEIN 7.3 GM/DL (6.4-8.2)
[2020-08-03] MEDS ORDERED: KCL 10 MEQ TAB (MICRO K) PO ONE (22:45)
[2020-08-03 22:49] LABS: CLARITY,URINE CLEAR; COLOR,URINE YELLOW; GLUCOSE, URINE (UA) NEGATIVE (NEGATIVE); KETONES,URINE 3+ (NEGATIVE); LEUKOCYTE ESTERASE ,URINE TRACE (NEGATIVE); NITRITE,URINE NEGATIVE (NEGATIVE); PROTEIN,URINE TRACE (NEGATIVE)
[2020-08-03 22:57] LABS: BACTERIA,URINE TRACE /HPF; BILIRUBIN,URINE 1+ (NEGATIVE); SQUAMOUS EPITHELIAL CELL,UR 25-50 /HPF; WBC,URINE RARE /HPF
[2020-08-03] MEDS ORDERED: PROM25TA14 PO (23:06)
[2020-08-03] MEDS ORDERED: DOXY1TAB3 PO (23:06)
--- NOTE | 2020-08-03 23:07 | ED General ---
General Chief Complaint: OB > 20 WEEKS Stated Complaint: 20 WKS PREG/COUGH/SOB/VOMITING/CRAMPS Nursing Triage Note: PT AMB TO ROOM 10 W/ CO COUGHING, N/V, INCREASED MUCUS, AND ABD DISCOMFORT. PT STATES SHE IS 20 WEEKS AND 3 DAYS . PT DENIES VAGINAL BLEEDING. A&OX4. Nursing Sepsis Screen: No Definite Risk Source of Information: Patient History of Present Illness Date Seen by Provider: Aug 03, 2020 Time Seen by Provider: 21:05 Initial Comments PT ARRIVES VIA POV FROM HOME C/O NON-PRODUCTIVE COUGH SINCE YESTERDAY C/O SLIGHT SHORTNESS OF BREATH INCREASED CONGESTION/MUCOUS C/O NAUSEA AND DRY HEAVES--HAS HISTORY OF ESOPHAGITIS FROM AGE 7 TO 19, BUT NO RECENT PROBLEMS NO DIARRHEA, HAD A NORMAL BM THIS AM HAS HAD DECREASED URINE OUTPUT TODAY--LAST NORMAL VOID WAS AROUND 1300 TODAY, HAS "DRIBBLED" SMALL AMOUNTS SINCE THEN NO KNOWN FEVER HAS HAD SOME LOWER ABDOMINAL DISCOMFORT--FEELS LIKE "PULLING" IN LOWER ABDOMEN, MOSTLY WITH DRY HEAVING. NO HEADACHE NO BODY ACHES NO SORE THROAT NO LOSS OF TASTE OR SMELL NO KNOWN SICK CONTACTS OR KNOWN EXPOSURE TO COVID-19 PT IS 20 WEEKS , AND HAS HAD LOTS OF NAUSEA AND VOMITING WITH TOOK A ZOFRAN THIS MORNING , BUT NONE SINCE. HAD A PRESCRIPTION FOR PHENERGAN PILLS, AND STATES THEY HELPED BETTER THAN ZOFRAN, BUT HAS LOST THE BOTTLE. ( HAD RX FOR SUPPOSITORIES, BUT COULD NOT AFFORD THEM) PT IS AB 0 HAD ROUTINE VISIT LAST WEEK WITH DR. HELTON. PCP: [facility] [place] NEGATIVE NOTCHER: DR. HELTON Allergies and Home Medications Allergies Coded Allergies: No Known Drug Allergies (Unverified , 01/12/18) Home Medications Acyclovir 400 Mg Tablet, 400 MG PO TID Prescribed by: ARDEN CAMACHO on 01/12/18 0141 Doxylamine/Pyridoxine HCl 1 Each Tablet., 2 EACH PO HS Prescribed by: BONITA HINTON on 05/07/20 0137 Doxylamine/Pyridoxine HCl 1 Each Tablet., 2 EACH PO HS Prescribed by: BONITA HINTON on 08/03/20 2306 Nitrofurantoin Monohyd/M-Cryst 100 Mg Capsule, 1 TAB PO BID Prescribed by: TONI KELLER on 04/30/202143 Promethazine HCl 25 Mg Tablet, 25 MG PO Q8H PRN for NAUSEA/VOMITING Prescribed by: BONITA HINTON on 08/03/20 2306 Pyridoxine HCl 50 Mg Tablet, 25 MG PO TID Prescribed by: DEBI ESPINAL on 04/26/20 0958 Sucralfate 1 Gm Tablet, 1 GM PO QID Prescribed by: BONITA HINTON on 05/07/20 0137 Patient Home Medication List Home Medication List Reviewed: Yes Review of Systems Review of Systems Constitutional: no symptoms reported; No chills, No diaphoresis, No dizziness, No fever EENTM: see HPI, nose congestion Respiratory: see HPI, cough, short of breath Cardiovascular: no symptoms reported; No chest pain, No edema Gastrointestinal: see HPI; No constipation, No diarrhea; nausea, vomiting (DRY HEAVES) Genitourinary: see HPI, decreased output; No dysuria, No frequency, No hematu heriberto, No incontinence, No pain : Yes Expected Date of Delivery: Dec 18, 2020 Musculoskeletal: no symptoms reported Skin: no symptoms reported Psychiatric/Neurological: No Symptoms Reported; Denies Headache Hematologic/Lymphatic: No Symptoms Reported Immunological/Allergic: no symptoms reported Past Wfdrdpx-Wugmqm-Qjhnud Hx Past Med/Social Hx: Reviewed and Corrections made Patient Social History Alcohol Use: Past History Drug of Choice: MARIJUANA Smoking Status: Never a Smoker 2nd Hand Smoke Exposure: No Recent Infectious Disease Expo: No Recent Hopitalizations: No Substance type: Marijuana Seasonal Allergies Seasonal Allergies: No Past Medical History Surgeries: Yes ([place] teeth) Tonsillectomy Respiratory: No Cardiac: No Neurological: No : Yes Expected Date of Delivery: Dec 18, 2020 Last Menstrual Period: Mar 13, 2020 Hx : 1 Hx Para: 1 Reproductive Disorders: No Female Reproductive Disorders: Denies Genitourinary: No Gastrointestinal: Yes (ESOPHAGITIS "FROM AGE 7 TO 19" PER PT--NO EGD DONE) Esophagitis Musculoskeletal: No Endocrine: No HEENT: No Cancer: No Did You Recieve Any Treatments: No Psychosocial: No Integumentary: No Blood Disorders: No Physical Exam Vital Signs Vital Signs - First Documented 08/03/20 21:00 Temp 36.5 Pulse 82 Resp 22 B/P (MAP) 119/83 (95) Pulse Ox 100 O2 Delivery Room Air Capillary Refill : Less Than 3 Seconds Height, Weight, BMI Height: 5'4.00" Weight: 152lbs. oz. 68.598943et; 22.00 BMI Method:Stated General Appearance: No Apparent Distress, WD/WN, Other (DOES NOT APPEAR ILL OR TO BE IN ANY DISCOMFORT OR DISTRESS. WALKS UPRIGHT AND MOVES WITHOUT DIFFICULTY. TEXTING/PLAYING ON PHONE THROUGHTOUT ENTIRE ER STAY. NO COUGH OR DYSPNEA NOTED AT ANY TIME. ) HEENT: PERRL/EOMI, TMs Normal, Normal ENT Inspection, Pharynx Normal, Moist M ucous Membranes Neck: Full Range of Motion, Normal Inspection, Non Tender, Supple Respiratory: Normal Breath Sounds, No Accessory Muscle Use, No Respiratory Distress Cardiovascular: Regular Rate, Rhythm, No Edema, No JVD, No Murmur, Normal Peripheral Pulses Gastrointestinal: Normal Bowel Sounds, No Pulsatile Mass, Non Tender, Soft, Other (FUNDUS 1 FB BELOW UMBILICUS) Back: No CVA Tenderness Extremity: Normal Capillary Refill, Normal Inspection, Normal Range of Motion, Non Tender, No Calf Tenderness, No Pedal Edema Neurologic/Psychiatric: Alert, Oriented x3, No Motor/Sensory Deficits, Normal Mood/Affect, 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 Norm as Tested Skin: Normal Color, Warm/Dry; No Rash Progress/Results/Core Measures Suspected Sepsis Recent Fever Within 48 Hours: No Infection Criteria Present: None New/Unexplained Altered Menta: No Sepsis Screen: No Definite Risk SIRS Temperature: Pulse: 82 Respiratory Rate: 22 Laboratory Tests 08/03/20 21:24: White Blood Count 12.0H Blood Pressure 119 /83 Mean: 95 Laboratory Tests 08/03/20 21:24: Creatinine 0.62, INR Comment 0.9, Platelet Count 306, Total Bilirubin 0.9 Results/Orders Lab Results Laboratory Tests Test 08/03/20 21:24 08/03/20 22:32 Range/Units White Blood Count 12.0 H 4.3-11.0 10^3/uL Red Blood Count 4.17 3.80-5.11 10^6/uL Hemoglobin 12.9 11.5-16.0 g/dL Hematocrit 38 35-52 % Mean Corpuscular Volume 90 80-99 fL Mean Corpuscular Hemoglobin 31 25-34 pg Mean Corpuscular Hemoglobin Concent 34 32-36 g/dL Red Cell Distribution Width 12.4 10.0-14.5 % Platelet Count 306 130-400 10^3/uL Mean Platelet Volume 10.7 9.0-12.2 fL Immature Granulocyte % (Auto) 1 % Neutrophils (%) (Auto) 80 H 42-75 % Lymphocytes (%) (Auto) 16 12-44 % Monocytes (%) (Auto) 3 0-12 % Eosinophils (%) (Auto) 0 0-10 % Basophils (%) (Auto) 0 0-10 % Neutrophils # (Auto) 9.5 H 1.8-7.8 10^3/uL Lymphocytes # (Auto) 1.9 1.0-4.0 10^3/uL Monocytes # (Auto) 0.4 0.0-1.0 10^3/uL Eosinophils # (Auto) 0.0 0.0-0.3 10^3/uL Basophils # (Auto) 0.0 0.0-0.1 10^3/uL Immature Granulocyte # (Auto) 0.1 0.0-0.1 10^3/uL Erythrocyte Sedimentation Rate 39 H 0-20 MM/HR Prothrombin Time 12.2 12.2-14.7 SEC INR Comment 0.9 0.8-1.4 Activated Partial Thromboplast Time 21 L 24-35 SEC Sodium Level 136 135-145 MMOL/L Potassium Level 3.3 L 3.6-5.0 MMOL/L Chloride Level 105 98-107 MMOL/L Carbon Dioxide Level 17 L 21-32 MMOL/L Anion Gap 14 5-14 MMOL/L Blood Urea Nitrogen 11 7-18 MG/DL Creatinine 0.62 0.60-1.30 MG/DL Estimat Glomerular Filtration Rate > 60 BUN/Creatinine Ratio 18 Glucose Level 96 70-105 MG/DL Calcium Level 9.2 8.5-10.1 MG/DL Corrected Calcium 9.2 8.5-10.1 MG/DL Magnesium Level 1.7 1.6-2.4 MG/DL Total Bilirubin 0.9 0.1-1.0 MG/DL Aspartate Amino Transf (AST/SGOT) 22 5-34 U/L Alanine Aminotransferase (ALT/SGPT) 34 0-55 U/L Alkaline Phosphatase 57 40-136 U/L Myoglobin 12.6 10.0-92.0 NG/ML Troponin I < 0.028 <0.028 NG/ML C-Reactive Protein High Sensitivity 0.24 0.00-0.50 MG/DL B-Type Natriuretic Peptide < 10.0 <100.0 PG/ML Total Protein 7.3 6.4-8.2 GM/DL Albumin 4.0 3.2-4.5 GM/DL Procalcitonin 0.02 <0.10 NG/ML Coronavirus 2019 (MANSI) Not Detected Not Detecte Urine Color YELLOW Urine Clarity CLEAR Urine pH 6.0 5-9 Urine Specific [place] >=1.030 1.016-1.022 Urine Protein TRACE H NEGATIVE Urine Glucose (UA) NEGATIVE NEGATIVE Urine Ketones 3+ H NEGATIVE Urine Nitrite NEGATIVE NEGATIVE Urine Bilirubin 1+ H NEGATIVE Urine Urobilinogen 1.0 < = 1.0 MG/DL Urine Leukocyte Esterase TRACE H NEGATIVE Urine RBC (Auto) NEGATIVE NEGATIVE Urine RBC NONE /HPF Urine WBC RARE /HPF Urine Squamous Epithelial Cells 25-50 H /HPF Urine Crystals NONE /LPF Urine Bacteria TRACE /HPF Urine Casts NONE /LPF Urine Mucus LARGE H /LPF Urine Culture Indicated NO Micro Results Microbiology 08/03/20 Influenza Types A,B Antigen (ROCHELLE) - Final, Complete My Orders Orders - BONITA HINTON DO Ed Iv/Invasive Line Start (08/03/20 21:03) Monitor-Rhythm Ecg Trace Only (08/03/20 21:03) BNP (08/03/20 21:03) Cbc With Automated Diff (08/03/20 21:03) Comprehensive Metabolic Panel (08/03/20 21:03) Hs C Reactive Protein (08/03/20 21:03) Magnesium (08/03/20 21:03) Procalcitonin (Pct) (08/03/20 21:03) Protime With Inr (08/03/20 21:03) Partial Thromboplastin Time (08/03/20 21:03) Ua Culture If Indicated (08/03/20 21:03) Influenza A And B Antigens (08/03/20 21:03) Erythrocyte Sedimentation Rate (08/03/20 21:03) Myoglobin Serum (08/03/20 21:03) Troponin I (08/03/20 21:03) Covid 19 Inhouse Test (08/03/20 21:03) Ondansetron Injection (Zofran Injectio (08/03/20 21:15) Ed Iv/Invasive Line Start (08/03/20 21:10) Lactated Ringers (Lr 1000 Ml Iv Solution (08/03/20 21:15) Lactated Ringers (Lr 1000 Ml Iv Solution (08/03/20 21:04) Ondansetron Injection (Zofran Injectio (08/03/20 21:04) Potassium Chloride (Tablet) (Klor Con Ta (08/03/20 22:45) Medications Given in ED Vital Signs/I&O 08/03/20 08/03/20 21:00 23:10 Temp 36.5 36.5 Pulse 82 90 Resp 22 18 B/P (MAP) 119/83 (95) 113/77 Pulse Ox 100 99 O2 Delivery Room Air Room Air 08/04/20 00:00 Intake Total 1000 ml Balance 1000 ml Capillary Refill : Less Than 3 Seconds Blood Pressure Mean: 95 Progress Note : Progress Note PLACED IN ISOLATION ROOM PPE WORN AT ALL TIMES COVID-19 TESTING PERFORMED NO COUGH, NO DYSPNEA, NO HYPOXIA, NO FEVER AT ANY TIME GIVEN ZOFRAN AND IV FLUIDS WITH RESOLUTION OF NAUSEA, NO VOMITING AT ANY TIME NO ABDOMINAL PAIN COMPLAINTS DURING ER STAY PT TOLERATING WATER AT DISMISSAL FHR 150-160 WILL SEND PT TO OB DEPT AT DISMISSAL FOR MONITORING Departure Impression Primary Impression: Nausea and vomiting during prior to 22 weeks gestation Additional Impressions: Hypokalemia Upper respiratory symptom Disposition: HOME, SELF-CARE Condition: Improved Departure-Patient Inst. Referrals: JO HELTON DO (PCP) Primary Care Physician DORYS ALEXANDER MD (Family) Primary Care Physician Patient Instructions: Nausea and Vomiting of , Hypokalemia (DC) Add. Discharge Instructions: CLEAR LIQUIDS, SIPS AT A NMYL-9-YOTIA, BROTH, JELLO, GATORADE, POPSICLES BRATS DIET--BANANAS, RICE, APPLESAUCE, TOAST, SALTINES FOLLOW UP WITH DR. HELTON ON FRIDAY IF NO BETTER, RETURN TO ER IF WORSE All discharge instructions reviewed with patient and/or family. Voiced understanding. Scripts Doxylamine/Pyridoxine HCl (Selma Villarreal 10-10 mg Tablet) 1 Each Tablet. 2 EACH PO HS, #60 TAB Prov: BONITA HINTON DO 08/03/20 Promethazine HCl (Promethazine Tablet) 25 Mg Tablet 25 MG PO Q8H PRN for NAUSEA/VOMITING, #14 TAB 0 Refills Prov: BONITA HINTON DO 08/03/20 BONITA HINTON DO Aug 03, 2020 23:07
[2020-08-03 23:10] VITALS: BP 113/77
== END 2020-08-03 23:18 | disposition home or self-care (01) ==
LOC: EDUNIT# 20:51 → ER 20:58
DX: O21.0 Mild hyperemesis gravidarum (principal); E87.6 Hypokalemia; J98.8 Other specified respiratory disorders; Z3A.20 20 weeks gestation of pregnancy; Z20.822 Contact with and (suspected) exposure to COVID-19
CPT/HCPCS: 80053; 81000; 83735; 83874; 83880; 84145; 84484; 85025; 85610; 85652; 85730; 86141; 87804; 93041; 99284; U0002; 36415; 87635

== ENCOUNTER 2020-11-14 17:13 | Outpatient (CLI) | payer BC, MEDICAID ==
[~2020-11-14] VITALS: Ht 162.6 cm; Wt 75.7 kg
[~2020-11-14 17:13] MED LIST changes: +PROM25TA14 PO
[2020-11-14 17:36] LABS: BILIRUBIN,URINE NEGATIVE (NEGATIVE); CLARITY,URINE CLEAR; COLOR,URINE YELLOW; GLUCOSE, URINE (UA) NEGATIVE (NEGATIVE); KETONES,URINE NEGATIVE (NEGATIVE); LEUKOCYTE ESTERASE ,URINE 2+ (NEGATIVE); NITRITE,URINE NEGATIVE (NEGATIVE); PROTEIN,URINE NEGATIVE (NEGATIVE)
[2020-11-14 17:50] VITALS: BP 118/80
[2020-11-14 17:50] LABS: AMORPHOUS SEDIMENT,UR FEW AMOR URATES /LPF; BACTERIA,URINE TRACE /HPF
[2020-11-14] MEDS ORDERED: CEPHALEXIN 250 MG (KEFLEX) CAP PO NR (18:30)
[2020-11-14] MEDS ORDERED: CEPH500T PO (19:13)
--- NOTE | 2020-11-15 07:43 | Physician Query-Final Dx ---
Clinic Account Progress/Dx Physician Query: Please give diagnosis Please include # weeks gestation Date of Service Nov 14, 2020 at 17:13 YADIRA WADE Nov 15, 2020 07:43
== END 2020-11-14 19:30 | disposition home or self-care (01) ==
LOC: WSo 17:13 → LDRP 17:14 → WS 18:07 → LDRP 18:07 → WSo 19:30
PROVIDERS: ATTEND Obstetrics & Gynecology
DX: Z34.90 Encounter for supervision of normal pregnancy, unspecified, unspecified trimester (principal); Z3A.00 Weeks of gestation of pregnancy not specified
CPT/HCPCS: 81000; 87088; G0463; 99214

== ENCOUNTER 2020-11-25 07:36 | Outpatient (CLI) | payer BC, MEDICAID ==
[~2020-11-25] VITALS: Ht 162.5 cm; Wt 77.7 kg
[~2020-11-25 07:36] MED LIST changes: +CEPH500T PO
[2020-11-25 08:00] VITALS: BP 124/80
[2020-11-25 08:05] LABS: BILIRUBIN,URINE NEGATIVE (NEGATIVE); CLARITY,URINE CLEAR; COLOR,URINE YELLOW; GLUCOSE, URINE (UA) NEGATIVE (NEGATIVE); KETONES,URINE NEGATIVE (NEGATIVE); LEUKOCYTE ESTERASE ,URINE 2+ (NEGATIVE); NITRITE,URINE NEGATIVE (NEGATIVE); PROTEIN,URINE NEGATIVE (NEGATIVE)
[2020-11-25 08:24] LABS: AMORPHOUS SEDIMENT,UR FEW AMOR PHOSPHATE /LPF; BACTERIA,URINE FEW /HPF; RBC,URINE RARE /HPF; WBC,URINE 25-50 /HPF
--- NOTE | 2020-11-27 08:36 | Physician Query-Final Dx ---
YADIRA WADE 11/27/20 0836: Clinic Account Progress/Dx Physician Query: Please give diagnosis Please include # weeks gestation Date of Service Nov 25, 2020 at 07:36 ALICIA MONAE MD 11/27/20 1258: Clinic Account Progress/Dx DIAGNOSIS: Diagnosis False labor at 36 weeks gestation YADIRA WADE Nov 27, 2020 08:36 ALICIA MONAE MD Nov 27, 2020 12:58
== END 2020-11-25 08:57 | disposition home or self-care (01) ==
LOC: LDRP 07:36 → WSo 07:36
PROVIDERS: ATTEND Obstetrics & Gynecology
DX: Z34.93 Encounter for supervision of normal pregnancy, unspecified, third trimester (principal); Z3A.36 36 weeks gestation of pregnancy
CPT/HCPCS: 81000; 87088

== ENCOUNTER 2020-12-07 17:13 | Inpatient (IN) | payer BC, MEDICAID ==
[2020-12-07] VITALS (15 sets, daily range): BP systolic 105–164; BP diastolic 58–90
[~2020-12-07] VITALS: Ht 162.5 cm; Wt 77.7 kg
[2020-12-07] MEDS ORDERED: D5 LR IV SOLUTION 1,000 ML IV SCH (17:45)
[2020-12-07 18:15] LABS: BASOPHILS % (AUTO) 0 % (0-10); EOSINOPHILS # (AUTO) 0.1 10^3/uL (0.0-0.3); EOSINOPHILS % (AUTO) 1 % (0-10); HEMATOCRIT 36 % (35-52); HEMOGLOBIN 11.9 g/dL (11.5-16.0); LYMPHOCYTES # (AUTO) 2.4 10^3/uL (1.0-4.0); LYMPHOCYTES % (AUTO) 14 % (12-44); MEAN CORPUSCULAR HEMOGLOBIN 29 pg (25-34); MEAN CORPUSCULAR HGB CONC 33 g/dL (32-36); MEAN CORPUSCULAR VOLUME 88 fL (80-99); MONOCYTES # (AUTO) 0.7 10^3/uL (0.0-1.0); MONOCYTES % (AUTO) 4 % (0-12); NEUTROPHILS # (AUTO) 13.1 10^3/uL (1.8-7.8); NEUTROPHILS % (AUTO) 80 % (42-75); PLATELET COUNT 308 10^3/uL (130-400); WHITE BLOOD COUNT 16.5 10^3/uL (4.3-11.0)
--- NOTE | 2020-12-07 18:16 | History & Physical-OB/GYN ---
DAVID CORREIA 12/07/20 1816: OB - Chief Complaint & HPI Date/Time Date of Admission: Date of Admission: Dec 07, 2020 at 17:35 Date seen by a Provider: Dec 07, 2020 Time Seen by a Provider: 18:10 Chief Complaint/History OB-Reason for Admission/Chief: Onset of Labor Hx : 1 Hx Para: 0 Expected Date of Delivery: Dec 21, 2020 Gestational Age in Weeks: 38 Gestational Age in Days: 1 Admission Nurse Assessment Rev: Yes Allergies and Home Medications Allergies Coded Allergies: No Known Drug Allergies (Unverified , 01/12/18) Patient Home Medication List Home Medication List Reviewed: Yes No Active Prescriptions or Reported Meds OB - History Hx of Present Care: Yes Ultrasounds: Normal mid trimester US Obstetrical Complications: Hyperemesis Medical Complications: None Obstetrical History Hx Termination: No Hx Multiple Gestation: No Hx Stillbirth: No Hx Complication: No Hx Induced Hypertens: No Hx Maternal Gestational Diabet: No Patient Past Medical History Pt has hx of previously treated STI in the last 1-2 years. Treated for Chlamydia and gonorrhea within the last 6 months. No previous . No known medical conditions at this time. Social History/Family History 2nd Hand Smoke Exposure: No OB - Admission Exam Physical Exam HEENT: PERRLA Heart: Rhythm Normal Lungs: Clear, Equal Abdomen: Gravid Extremities: Normal Cervical Dilatation: 5cm Effacement: 100% Station: 0 Membranes: Intact Amniotic Fluid: Clear Heart Rate: 140's Accelerations: No Accelerations Decelerations: No Decelerations Short Term Variability: Present Jail Variability: Average (6-25) Contractions on Admission: None Intensity: Firm Labs Laboratory Tests Test 12/07/20 18:00 Range/Units OB - Assessment/Plan/Diagnosis Assessment Assessment: active labor Admission Dx Active Labor Admission Status: Inpatient Order (span 2 midnights) Reason for Inpatient Admission: Active labor at term JO HELTON DO 12/07/202151: Allergies and Home Medications Allergies Coded Allergies: No Known Drug Allergies (Unverified , 01/12/18) Patient Home Medication List No Active Prescriptions or Reported Meds Supervisory-Addendum Brief Verification & Attestation Participated in pt care: history, MDM Personally performed: exam, history, MDM Care discussed with: Medical Student Procedures: n/a Results interpretation: Verified all documentation Verification and Attestation of Medical Student E/M Service A medical student performed and documented this service in my presence. I reviewed and verified all information documented by the medical student and made modifications to such information, when appropriate. I personally performed the physical exam and medical decision making. Jo Helton, Dec 07, 2020,21:51 DAVID CORREIA Dec 07, 2020 18:16 JO HELTON DO Dec 07, 2020 21:52
[2020-12-07 18:39] LABS: LYMPHOCYTES % (MANUAL) 20 %; MONOCYTES % (MANUAL) 3 %; NEUTROPHILS % (MANUAL) 77 %; RBC MORPH NORMAL
[2020-12-07] MEDS ORDERED: fentaNYL 2 mcg/ml BUPIVA 0.125 100 ML ONE (18:39)
[2020-12-07] MEDS ORDERED: HYDROmorphone 2 MG/ML VIAL (DILAUDID) ONE (19:04)
[2020-12-07] MEDS ORDERED: HYDROmorphone 2 MG/ML VIAL (DILAUDID) IVP ONE (19:15)
[2020-12-07] MEDS ORDERED: fentaNYL INJ 100 MCG/2 ML AMP ONE (19:46)
[2020-12-07] MEDS ORDERED: LACTATED RINGERS 1,000 ML IV SCH (20:30)
[2020-12-07] MEDS ORDERED: OXYTOCIN PRE-MIX DRIP 500 ML IV ONE ×2 (21:14→22:52)
[2020-12-07] MEDS ORDERED: CATHETER FLUSH 10 ML SYR IV SCH (22:00)
[2020-12-07] MEDS ORDERED: LIDOCAINE/EPI 2% 1:200,00 (XYLOCAINE) 20 ML VIAL ONE (22:24)
[2020-12-07] MEDS ORDERED: DIBUCAINE 1% OINTMENT 30 GM TUBE TOP PRN (22:45)
[2020-12-07] MEDS ORDERED: WITCH HAZEL(TUCKS) 40 EA JAR TOP PRN (22:45)
[2020-12-07] MEDS ORDERED: OXYTOCIN PRE-MIX DRIP 500 ML IV SCH (22:45)
[2020-12-07] MEDS ORDERED: BENZOCAINE/MENTHOL (DERMOPLAST) 56 ML CAN TP PRN (22:45)
[2020-12-07] MEDS ORDERED: HYDROcodone/APAP 5 MG/325 MG (LORTAB) TAB PO PRN (22:45)
[2020-12-07] MEDS ORDERED: MEASLES,MUMPS,RUBELLA 1 EA INJ SQ ONE (22:45)
[2020-12-07] MEDS ORDERED: TETANUS,DIPTH,PERTUSS P/F (BOOSTRIX) 0.5 ML VIAL IM ONE (22:45)
[2020-12-07] MEDS ORDERED: NALOXONE 0.4 MG/ML 1 ML (NARCAN) VIAL IV PRN (22:45)
--- NOTE | 2020-12-07 22:45 | Discharge Inst-Women's Service ---
Discharge Inst-Women's Serv Depart Medication/Instructions New, Converted or Re-Newed RX: RX on Chart Final Diagnosis PPD 2 NVD Problems Reviewed?: Yes Consults/Follow Up Additional Follow Up: Yes Orders/Referrals Dr. Helton in 6 weeks Activity Activity: Activity as Tolerated Driving Instructions: No Driving for 1 Week NO SMOKING: NO SMOKING Nothing Inside Vagina: No Douching, No [place], No Tampons Diet Discharge Diet: No Restrictions Symptoms to Report to : Bleeding Excessive, Pain Increased, Fever Over 101 Degrees F, Vaginal Bleeding Increase, Questions/Concerns For Any Problems or Questions: Contact Your Physician JO HELTON DO Dec 07, 2020 22:45
[2020-12-07] MEDS ORDERED: IBUP-844 PO (22:47)
[2020-12-07] MEDS ORDERED: DIBU30OI TOP (22:47)
[2020-12-07] MEDS ORDERED: BENZ78AE5 TP (22:47)
[2020-12-07] MEDS ORDERED: ACHD5005 PO (22:47)
[2020-12-07] MEDS ORDERED: DCS100C PO (22:47)
[2020-12-07] MEDS ORDERED: FERR325T24 PO (22:47)
--- NOTE | 2020-12-07 22:53 | OB Labor & Delivery Record ---
L&D History Date of Service Date of Service: Dec 07, 2020 History Expected Date of Delivery: Dec 21, 2020 Gestational Age in Weeks: 38 Hx : 1 Hx Para: 0 Complications Events: Routine care Operative Indications (Cesarea: N/A-Vaginal Delivery Intrapartal Events: None L&D Stage1 Stage One Onset of Labor - Date: Dec 07, 2020 Monitors and Tracing Monitor Mode: External Heart Rate: 135 Monitor Accelerations: Uniform Monitor Decelerations: None Hand Tennis Ball Coverer Variability: Average (6-10) Short Term Variability: Present Presentation: Vertex Vital Signs VS - Last 72 Hours, by Label 12/07/20 12/07/20 12/07/20 17:20 18:50 19:10 Temp 36.7 Pulse 108 80 99 Resp 18 18 18 B/P (MAP) 116/69 (85) 123/74 (90) Pulse Ox 99 99 99 O2 Delivery Room Air Room Air Room Air Rupture of Membranes Spontaneous Ruture of Membrane: No Amniotic Membrane Rupture Time: 183 Amniotic Membrane Fluid Desc.: Clear Vaginal Bleeding Description: Normal Show Induction/Anesthesia Epidural Cath Placement - Time: 1938 Progress/Notes Patient admitted in active labor, she had AROM performed after admission and was 5 cm. She received an epidural and progressed to complete and + 2 station without further augmentation. L&D Stage2 Stage Two Stage II Date: Dec 07, 2020 Monitors and Tracing Monitor Mode: External Heart Rate: 135 Monitor Accelerations: Uniform Monitor Decelerations: Variable Hand Tennis Ball Coverer Variability: Average (6-10) Short Term Variability: Present Position: Left Occiput Posterior Presentation: Vertex Cord Descript/Complications Cord Vessel Description: 3 Vessels Complications nuchal cord reduced x 2 Delivery Type Infant Delivery Method: Spontaneous Vaginal Anterior Shoulder: Left Episiotomy/Perineal Laceration Laceraction(s)/Extensions: Yes Episiotomy Description: Vaginal Extension/lac, 1st degree Degree (describe repair) 1st degre vaginal laceration repaired using rapide 3-0 vicryl suture Condition of Delivery 1 minute Comment: 8 5 minute Comment: 9 Notes Live female weight 6lbs 5oz Condition of Infant Condition of : Living Exam: No Observed Abnormalities Resuscitation Resuscitation: N/A - Spontaneous Resp L&D Stage3 Stage Three Stage III Date: Dec 07, 2020 Pictocin Pitocin Administration Comment: 30 mu wide open after delivery of placenta Placenta Delivery Placenta Delivery: Spontaneous Delivery Summary Summary Estimated blood loss (mL): 300 Attending at delivery: Jo Helton DO Condition of Delivery Examined: Cervix Examined, Uterus Explored Post Hemorrhage: No Condition of Mother stable Condition of Infant (s) stable JO HELTON DO Dec 07, 2020 22:53
[2020-12-07] MEDS: IBUPROFEN 600 MG (MOTRIN) TAB PO SCH (23:19)
[2020-12-08 00:11] VITALS: BP 111/77
[2020-12-08 00:30] VITALS: BP 115/62
[2020-12-08 04:53] VITALS: BP 121/71
[2020-12-08] MEDS: IBUPROFEN 600 MG (MOTRIN) TAB PO SCH ×3 (04:53→17:51)
[2020-12-08] MEDS ORDERED: CATHETER FLUSH 10 ML SYR IV SCH (06:00)
[2020-12-08 06:22] LABS: BASOPHILS # (AUTO) 0.1 10^3/uL (0.0-0.1); BASOPHILS % (AUTO) 0 % (0-10); EOSINOPHILS % (AUTO) 0 % (0-10); HEMATOCRIT 34 % (35-52); HEMOGLOBIN 11.1 g/dL (11.5-16.0); LYMPHOCYTES # (AUTO) 2.7 10^3/uL (1.0-4.0); LYMPHOCYTES % (AUTO) 14 % (12-44); MEAN CORPUSCULAR HEMOGLOBIN 30 pg (25-34); MEAN CORPUSCULAR HGB CONC 33 g/dL (32-36); MEAN CORPUSCULAR VOLUME 91 fL (80-99); MEAN PLATELET VOLUME 11.5 fL (9.0-12.2); MONOCYTES # (AUTO) 1.2 10^3/uL (0.0-1.0); MONOCYTES % (AUTO) 6 % (0-12); NEUTROPHILS # (AUTO) 14.8 10^3/uL (1.8-7.8); NEUTROPHILS % (AUTO) 78 % (42-75); PLATELET COUNT 282 10^3/uL (130-400); WHITE BLOOD COUNT 18.9 10^3/uL (4.3-11.0)
[2020-12-08] MEDS: FERROUS SULF 325 MG (IRON) TAB PO SCH (08:59)
[2020-12-08] MEDS: PRENATAL VITAMIN 1 EA TAB PO SCH (08:59)
[2020-12-08] MEDS: DOCUSATE SODIUM 100 MG (COLACE) CAP PO SCH (08:59)
[2020-12-08 09:04] VITALS: BP 118/68
--- NOTE | 2020-12-08 10:44 | Postpartum Progress Note ---
Note Note Day # 1 Subjective: Patient is without complaints. Ambulating, voiding. Tolerating a regular diet without nausea or vomiting. Normal lochia. Pain is well controlled with oral pain medications. Objective: Physical Exam: General - Alert and oriented, no apparent distress Abdomen - Soft, appropriately tender to palpation, non-distended, fundus firm at umbilicus Extremities - no edema, negative Paty's bilaterally Assessment: Post- day # 1, status post spontaneous vaginal delivery. Recovering well, hemodynamically stable Acute blood loss anemia Plan: Routine care. Encourage breast feeding. Encourage ambulation. Ferrous sulfate supplementation. Plan for discharge tomorrow Vitals - Labs Vital Signs - I&O Vital Signs Date Time Temp Pulse Resp B/P (MAP) Pulse Ox O2 Delivery O2 Flow Rate FiO2 12/08/20 09:04 36.4 88 18 118/68 (85) 98 Room Air 12/08/20 04:53 36.8 93 18 121/71 (88) 97 Room Air 12/08/20 00:30 106 18 115/62 (79) 12/08/20 00:11 120 111/77 (88) 12/07/20 23:51 101 115/75 (88) 12/07/20 23:30 90 120/78 (92) 12/07/20 23:10 104 124/78 (93) 12/07/20 22:51 116 139/81 (100) 12/07/20 22:30 129 112/58 (76) 12/07/20 22:21 130 138/85 (102) 12/07/20 22:00 104 20 123/77 (92) 100 12/07/20 21:30 110 18 111/73 (86) 100 12/07/20 21:00 89 18 109/66 (80) 100 12/07/20 20:30 91 18 113/65 (81) 100 12/07/20 20:00 78 18 105/58 (74) 100 12/07/20 19:30 111 18 164/90 (114) 100 12/07/20 19:10 99 18 123/74 (90) 99 Room Air 12/07/20 18:50 80 18 116/69 (85) 99 Room Air 12/07/20 17:20 36.7 108 18 99 Room Air I & O 12/08/20 07:00 Intake Total 800 ml Balance 800 ml Labs Laboratory Tests 12/07/20 18:00: White Blood Count 16.5H, Red Blood Count 4.06, Hemoglobin 11.9, Hematocrit 36, Mean Corpuscular Volume 88, Mean Corpuscular Hemoglobin 29, Mean Corpuscular Hemoglobin Concent 33, Red Cell Distribution Width 13.6, Platelet Count 308, Mean Platelet Volume 11.0, Immature Granulocyte % (Auto) 1, Neutrophils (%) (Auto) 80H, Lymphocytes (%) (Auto) 14, Monocytes (%) (Auto) 4, Eosinophils (%) (Auto) 1, Basophils (%) (Auto) 0, Neutrophils # (Auto) 13.1H, Lymphocytes # (Auto) 2.4, Monocytes # (Auto) 0.7, Eosinophils # (Auto) 0.1, Basophils # (Auto) 0.0, Immature Granulocyte # (Auto) 0.1, Neutrophils % (Manual) 77, Lymphocytes % (Manual) 20, Monocytes % (Manual) 3, Blood Morphology Comment NORMAL 12/08/20 05:49: White Blood Count 18.9H, Red Blood Count 3.71L, Hemoglobin 11.1L, Hematocrit 34L , Mean Corpuscular Volume 91, Mean Corpuscular Hemoglobin 30, Mean Corpuscular Hemoglobin Concent 33, Red Cell Distribution Width 13.6, Platelet Count 282, Mean Platelet Volume 11.5, Immature Granulocyte % (Auto) 1, Neutrophils (%) (Auto) 78H, Lymphocytes (%) (Auto) 14, Monocytes (%) (Auto) 6, Eosinophils (%) (Auto) 0, Basophils (%) (Auto) 0, Neutrophils # (Auto) 14.8H, Lymphocytes # (Auto) 2.7, Monocytes # (Auto) 1.2H, Eosinophils # (Auto) 0.0, Basophils # (Auto) 0.1, Immature Granulocyte # (Auto) 0.1 NYDIA BECKETT APRN Dec 08, 2020 10:44
--- NOTE | 2020-12-08 13:40 | Anesthesia-Regional Post-Op ---
Regional Patient Condition Mental Status: Alert, Oriented x3 Circulation: Same as Pre-Op Headache: Absent Sensation: Full Recovery Motor Block: Absent Post Op Complications Complications None Follow Up Care/Instructions Patient Instructions None needed. Anesthesia/Patient Condition Patient is doing well, no complaints, stable vital signs, no apparent adverse anesthesia problems. ROM FINCH DO Dec 08, 2020 13:40
[2020-12-08 17:57] VITALS: BP 114/68
[2020-12-08 19:50] VITALS: BP 116/77
[2020-12-09 00:41] VITALS: BP 124/76
[2020-12-09] MEDS: IBUPROFEN 600 MG (MOTRIN) TAB PO SCH ×2 (00:41→06:47)
[2020-12-09] MEDS: DOCUSATE SODIUM 100 MG (COLACE) CAP PO SCH ×2 (00:41→08:12)
[2020-12-09] MEDS: CHLORASEPTIC LOZENGE MM PRN ×2 (02:01→08:12)
[2020-12-09] MEDS ORDERED: guaiFENesin SYRUP 100 MG/5 ML 10 ML (ROBITUSSIN SF) PO PRN ×2 (02:45→03:15)
[2020-12-09 06:47] VITALS: BP 137/88
[2020-12-09] MEDS: FERROUS SULF 325 MG (IRON) TAB PO SCH (08:12)
[2020-12-09] MEDS: PRENATAL VITAMIN 1 EA TAB PO SCH (08:12)
--- NOTE | 2020-12-09 08:56 | Postpartum Progress Note ---
Note Note Day # 2 s/p developed cough and sore throat. Covid and flu swabs negative She is afebrile Treated with robitussin and chloraseptic lozenges. Subjective: Patient is without complaints. Ambulating, voiding. Tolerating a regular diet without nausea or vomiting. Normal lochia. Pain is well controlled with oral pain medications. breast feeding. Objective: 12/09/20 12/09/20 00:41 06:47 Temp 36.8 36.6 Pulse 83 91 Resp 18 18 B/P (MAP) 124/76 (92) 137/88 (104) Pulse Ox 98 98 O2 Delivery Room Air Room Air Laboratory Tests Test 12/09/20 01:55 Range/Units Influenza Type A (RT-PCR) Not Detected Not Detecte Influenza Type B (RT-PCR) Not Detected Not Detecte SARS-CoV-2 RNA (RT-PCR) Not Detected Not Detecte Physical Exam: General - Alert and oriented, no apparent distress Abdomen - Soft, appropriately tender to palpation, non-distended, fundus firm at umbilicus Extremities - no edema, negative Paty's bilaterally Assessment: 1. post- day # 2, status post vaginal delivery. Recovering well, hemodynamically stable 2. pharyngitis - treat symptomatically Plan: Routine care. Encourage breast feeding. Encourage ambulation. Ferrous sulfate supplementation. Plan for discharge today Vitals - Labs Vital Signs - I&O Vital Signs Date Time Temp Pulse Resp B/P (MAP) Pulse Ox O2 Delivery O2 Flow Rate FiO2 12/09/20 06:47 36.6 91 18 137/88 (104) 98 Room Air 12/09/20 00:41 36.8 83 18 124/76 (92) 98 Room Air 12/08/20 19:50 37.0 78 18 116/77 (90) 98 Room Air 12/08/20 17:57 36.4 86 18 114/68 (83) 97 Room Air 12/08/20 17:51 36.5 12/08/20 09:04 36.4 88 18 118/68 (85) 98 Room Air Labs Laboratory Tests 12/09/20 01:55: Influenza Type A (RT-PCR) Not Detected, Influenza Type B (RT-PCR) Not Detected, SARS-CoV-2 RNA (RT-PCR) Not Detected JIAN ROSADO DO Dec 09, 2020 08:56
[2020-12-09 09:00] VITALS: BP 117/79
[2020-12-09] MEDS ORDERED: GUAI100L13 PO (09:25)
[2020-12-09] MEDS ORDERED: BENZ1LOZ64 MM (09:25)
[2020-12-09 12:00] VITALS: BP 117/79
== END 2020-12-09 12:00 | disposition home or self-care (01) | DRG 806 ==
LOC: WSo 17:13 → LDRP 17:14 → WSo 17:35 → LDRP 17:35
PROVIDERS: ADMIT Obstetrics & Gynecology; ATTEND Obstetrics & Gynecology
PROC: 10E0XZZ Delivery of Products of Conception, External Approach (ICD-10-PCS; principal; 2020-12-07)
PROC: 10907ZC Drainage of Amniotic Fluid, Therapeutic from Products of Conception, Via Natural or Artificial Opening (ICD-10-PCS; 2020-12-07)
PROC: 0HQ9XZZ Repair Perineum Skin, External Approach (ICD-10-PCS; 2020-12-07)
DX: O69.81X0 Labor and delivery complicated by cord around neck, without compression, not applicable or unspecified (principal); D62 Acute posthemorrhagic anemia; Z37.0 Single live birth; Z3A.38 38 weeks gestation of pregnancy; O70.0 First degree perineal laceration during delivery; O90.81 Anemia of the puerperium; O99.52 Diseases of the respiratory system complicating childbirth; J02.9 Acute pharyngitis, unspecified; Z20.822 Contact with and (suspected) exposure to COVID-19
CPT/HCPCS: 36415; 85007; 85025; 85027; 86850; 86900; 86901; 87636

== ENCOUNTER 2022-03-14 18:31 | Emergency (ER) | payer BC, MEDICAID ==
[~2022-03-14] VITALS: Ht 162.5 cm; Wt 61.3 kg
[~2022-03-14 18:31] MED LIST changes: +ACHD5005 PO; +BENZ1LOZ64 MM; +BENZ78AE5 TP; +DIBU30OI TOP; +DOCU-239 PO; +FERR325T24 PO; +GUAI100L13 PO; +IBUP-844 PO
--- NOTE | 2022-03-14 20:29 | ED Abdominal Pain ---
General Chief Complaint: Abdominal/GI Problems Stated Complaint: LEFT SIDE UTERUS PAIN Nursing Triage Note: TO ED VIA POV AND AMBULATORY TO TRIAGE AND C/O "LEFT SIDE UTERUS PAIN" FOR SEVERAL DAYS. WAS SEEN AT [facility] TODAY AND NEGATIVE , BV, AND TRICH. LAST IBUPROFEN THIS AM. PRESSURE WHEN URINATING BUT NOT PAIN. Source of Information: Patient History of Present Illness Date Seen by Provider: Mar 14, 2022 Time Seen by Provider: 20:17 Initial Comments PT ARRIVES VIA POV FROM HOME C/O LLQ AND SUPRAPUBIC PAIN, PT STATES "LEFT SIDE UTERUS PAIN" FOR SEVERAL DAYS. PAIN IS WORSE TODAY "LIKE A CONTRACTION ONLY CONSTANT" PAIN IS WORSE WITH WALKING OR LIFTING. NO RADIATION OF PAIN HAS SOME "PRESSURE" ON URINATION,BUT NO PAIN / BURNING ON URINATION, NO URGENCY OR FREQUENCY OR SENSATION OF INCOMPLETE EMPTYING NO VAGINAL DISCHARGE SHE HAS HAD ONGOING PAIN WITH INTERCOURSE SINCE SHE HAD A CHILD 12/07/2020. THIS IS NO DIFFERENT THAN IT HAS BEEN NO FEVER NO NAUSEA/VOMITING/DIARRHEA/CONSTIPATION. HAD A NORMAL BM TODAY LMP 02/27/22-03/05/22. NORMAL. NO CONTROL. TOOK 1 IBUPROFEN THIS AM, NO RELIEF WENT TO [facility] EARLIER TODAY FOR THIS PROBLEM, AND HAD PELVIC EXAM DONE PT STATES SHE TESTED NEGATIVE FOR B.V. AND TRICH, AND TEST WAS NEGATIVE. OTHER CULTURES ARE PENDING NO MEDICATIONS OR PRESCRIPTIONS WERE GIVEN. SHE DENIES ANY HISTORY OF THE SAME DENIES ANY HISTORY OF OR CORRUGATOR HELPER PROBLEMS. SHE HAS HAD "ESOPHAGITIS" BEFORE, BUT DOES NOT TAKE MEDIATIONS FOR IT, AND NO PROBLEMS RECENTLY, AND NO OTHER GI PROBLEMS. SHE HAS NOT HAD ANY ABDOMINAL OR CORRUGATOR HELPER SURGERIES NO OTHER CHRONIC ILLNESSES DOES NOT TAKE ANY DAILY MEDICATIONS. PT IS NOT COVID OR FLU VACCINATED PCP: [facility] Allergies and Home Medications Allergies Coded Allergies: No Known Drug Allergies (Unverified , 01/12/18) Patient Home Medication List Home Medication List Reviewed: Yes Benzocaine/Menthol (Dermoplast Pain Relieving [place]) 78 Gm Aerosol, 56 EA TP UD PRN for PAIN- SEE INSTRUCTIONS Prescribed by: JO HELTON on 12/07/20 2917 Benzocaine/Menthol (Chloraseptic Sore Throat Lozng) 1 Each Lozenge, 1 JERAD MM Q4H PRN for Throat Irritation Prescribed by: JIAN ROSADO on 12/09/20924 Dibucaine (Dibucaine) 30 Gm Oint, 0 GM TOP UD PRN for PAIN- SEE INSTRUCTIONS Prescribed by: JO HELTON on 12/07/202246 Docusate Sodium (Dok) 100 Mg Capsule, 100 MG PO BID PRN for CONSTIPATION-1ST LINE Prescribed by: JO HELTON on 12/07/202246 Doxycycline Hyclate (Doxycycline Hyclate) 100 Mg Tablet, 100 MG PO BID Prescribed by: BONITA HINTON on 03/14/222133 Ferrous Sulfate (Ferosul) 325 Mg Tablet, 325 MG PO DAILY Prescribed by: JO HELTON on 12/07/202246 Guaifenesin (Guaifenesin) 100 Mg/5 Ml Liquid, 200 MG PO QID PRN for COUGH Prescribed by: JIAN ROSADO on 12/09/20924 Hydrocodone Bit/Acetaminophen (HYDROcodone/APAP 5 MG/325 MG TAB) 1 Tab Tab, 1 EA PO Q4H PRN for PAIN-MODERATE (5-7) Prescribed by: JO HELTON on 12/07/202247 Ibuprofen (Ibu) 600 Mg Tablet, 600 MG PO Q6HR Prescribed by: JO HELTON on 12/07/202246 Ketorolac Tromethamine (Ketorolac Tromethamine) 10 Mg Tablet, 10 MG PO Q6H Prescribed by: BONITA HINTON on 03/14/222133 Metronidazole (Metronidazole) 500 Mg Tablet, 500 MG PO QID Prescribed by: BONITA HINTON on 03/14/222133 Review of Systems Review of Systems Constitutional: no symptoms reported Respiratory: No Symptoms Reported Cardiovascular: No Symptoms Reported Gastrointestinal: See HPI, Abdominal Pain Genitourinary: See HPI Musculoskeletal: no symptoms reported Skin: no symptoms reported Psychiatric/Neurological: Anxiety Endocrine: No Symptoms Reported Hematologic/Lymphatic: No Symptoms Reported Past Rcxrpxd-Rdpsub-Czxzsn Hx Patient Social History Tobacco Use?: No Substance use?: Yes Substance type: Marijuana Alcohol Use?: Yes Alcohol Frequency: Once in a while Immunizations Up To Date Influenza Vaccine Up-to-Date: No; Not Current Seasonal Allergies Seasonal Allergies: No Past Medical History Surgery/Hospitalization HX: T&A, Surgeries: Yes ([place] teeth) Adenoidectomy, Tonsillectomy Respiratory: No Cardiac: No Neurological: No Reproductive Disorders: No Female Reproductive Disorders: Denies Sexually Transmitted Disease: Yes (HERPES, TRICHOMONAS, GONORRHEA AND CHLAMYDIA. ) Genitourinary: No Gastrointestinal: Yes (ESOPHAGITIS "FROM AGE 7 TO 19" PER PT--NO EGD DONE) Esophagitis Musculoskeletal: No Endocrine: No HEENT: Yes (S/P T&A; WISDOM TEETH REMOVED) Tonsilitis Cancer: No Did You Recieve Any Treatments: No Psychosocial: No Integumentary: No Blood Disorders: No Physical Exam Vital Signs Vital Signs - First Documented 03/14/22 19:24 Temp 37.2 Pulse 85 Resp 16 B/P (MAP) 111/74 (86) Pulse Ox 98 O2 Delivery Room Air Capillary Refill : Less Than 3 Seconds Height/Weight/BMI Height: 5'4.00" Weight: 152lbs. oz. 68.262837kx; 23.00 BMI Method:Stated General Appearance: WD/WN, no apparent distress, other (TALKS RAPIDLY NON-STOP AT GREAT LENGTH. DOES NOT APPEAR TO BE IN ANY DISCOMFORT OR DISTRESS. WALKS UPRIGHT AND MOVES QUICKLY WITHOUT DIFFICULTY. ) HEENT: No scleral icterus (R), No scleral icterus (L) Respiratory: normal breath sounds, no respiratory distress, no accessory muscle use Cardiovascular: regular rate, rhythm, no murmur Gastrointestinal: normal bowel sounds, soft; No distended, No guarding, No rebound; tenderness (DIFFUSE LOWER ABDOMEN TENDERNESS, BUT IS MOST TENDER OVER SUPRAPUBIC AND LLQ AREAS. 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, no motor/sensory deficits, alert, oriented x 3, other (ANXIOUS) Skin: normal color, warm/dry; No rash Progress/Results/Core Measures Results/Orders Lab Results Laboratory Tests Test 03/14/22 20:23 03/14/22 20:24 Range/Units Urine Color YELLOW Urine Clarity CLOUDY Urine pH 7.0 5-9 Urine Specific [place] 1.025 H 1.016-1.022 Urine Protein NEGATIVE NEGATIVE Urine Glucose (UA) NEGATIVE NEGATIVE Urine Ketones 1+ H NEGATIVE Urine Nitrite NEGATIVE NEGATIVE Urine Bilirubin NEGATIVE NEGATIVE Urine Urobilinogen 2.0 < = 1.0 MG/DL Urine Leukocyte Esterase NEGATIVE NEGATIVE Urine RBC (Auto) NEGATIVE NEGATIVE Urine RBC NONE /HPF Urine WBC 0-2 /HPF Urine Squamous Epithelial Cells 2-5 /HPF Urine Crystals PRESENT H /LPF Urine Amorphous Sediment FEW VINCENT PHOSPHATE H /LPF Urine Bacteria FEW H /HPF Urine Casts NONE /LPF Urine Mucus SMALL H /LPF Urine Culture Indicated YES Urine Opiates Screen NEGATIVE NEGATIVE Urine Oxycodone Screen NEGATIVE NEGATIVE Urine Methadone Screen NEGATIVE NEGATIVE Urine Propoxyphene Screen NEGATIVE NEGATIVE Urine Barbiturates Screen NEGATIVE NEGATIVE Ur Tricyclic Antidepressants Screen NEGATIVE NEGATIVE Urine Phencyclidine Screen NEGATIVE NEGATIVE Urine Amphetamines Screen NEGATIVE NEGATIVE Urine Methamphetamines Screen NEGATIVE NEGATIVE Urine Benzodiazepines Screen NEGATIVE NEGATIVE Urine Cocaine Screen NEGATIVE NEGATIVE Urine Cannabinoids Screen POSITIVE H NEGATIVE White Blood Count 10.2 4.3-11.0 10^3/uL Red Blood Count 4.63 3.80-5.11 10^6/uL Hemoglobin 13.7 11.5-16.0 g/dL Hematocrit 41 35-52 % Mean Corpuscular Volume 89 80-99 fL Mean Corpuscular Hemoglobin 30 25-34 pg Mean Corpuscular Hemoglobin Concent 33 32-36 g/dL Red Cell Distribution Width 12.4 10.0-14.5 % Platelet Count 275 130-400 10^3/uL Mean Platelet Volume 11.5 9.0-12.2 fL Immature Granulocyte % (Auto) 0 % Neutrophils (%) (Auto) 49 42-75 % Lymphocytes (%) (Auto) 43 12-44 % Monocytes (%) (Auto) 6 0-12 % Eosinophils (%) (Auto) 1 0-10 % Basophils (%) (Auto) 1 0-10 % Neutrophils # (Auto) 5.0 1.8-7.8 10^3/uL Lymphocytes # (Auto) 4.4 H 1.0-4.0 10^3/uL Monocytes # (Auto) 0.6 0.0-1.0 10^3/uL Eosinophils # (Auto) 0.1 0.0-0.3 10^3/uL Basophils # (Auto) 0.1 0.0-0.1 10^3/uL Immature Granulocyte # (Auto) 0.0 0.0-0.1 10^3/uL Sodium Level 141 135-145 MMOL/L Potassium Level 4.0 3.6-5.0 MMOL/L Chloride Level 107 98-107 MMOL/L Carbon Dioxide Level 24 21-32 MMOL/L Anion Gap 10 5-14 MMOL/L Blood Urea Nitrogen 13 7-18 MG/DL Creatinine 0.83 0.60-1.30 MG/DL Estimat Glomerular Filtration Rate 101 BUN/Creatinine Ratio 16 Glucose Level 95 70-105 MG/DL Calcium Level 9.7 8.5-10.1 MG/DL Corrected Calcium 8.5-10.1 MG/DL Total Bilirubin 1.0 0.1-1.0 MG/DL Aspartate Amino Transf (AST/SGOT) 12 5-34 U/L Alanine Aminotransferase (ALT/SGPT) 14 0-55 U/L Alkaline Phosphatase 72 40-136 U/L Total Protein 7.3 6.4-8.2 GM/DL Albumin 4.6 H 3.2-4.5 GM/DL Amylase Level 52 25-125 U/L Lipase 27 8-78 U/L My Orders Orders - BONITA HINTON DO Ed Iv/Invasive Line Start (03/14/22 20:22) Urine Bedside (03/14/22 20:22) Amylase (03/14/22 20:22) Cbc With Automated Diff (03/14/22 20:22) Comprehensive Metabolic Panel (03/14/22 20:22) Drug Screen Stat (Urine) (03/14/22 20:22) Lipase (03/14/22 20:22) Ua Culture If Indicated (03/14/22 20:22) Ed Iv/Invasive Line Start (03/14/22 20:22) Lactated Ringers (Lr 1000 Ml Iv Solution (03/14/22 20:30) Urine Culture (03/14/22 20:23) Ct Abdomen/Pelvis W (03/14/22 20:51) Ketorolac Injection (Toradol Injection) (03/14/22 21:00) Iohexol Injection (Omnipaque 350 Mg/Ml 1 (03/14/22 21:00) Received Contrast (Hold Metformin- Contr (03/14/22 21:00) Ns (Ivpb) (Sodium Chloride 0.9% Ivpb Bag (03/14/22 21:00) Ceftriaxone 1 Gm Pre-Mix (Rocephin 1 Gm (03/14/22 21:30) Azithromycin Tablet (Zithromax Tablet) (03/14/22 21:30) Rx-Tramadol Hcl (Rx-Ultram) (03/14/22 21:34) Rx-Naproxen (Rx-Naprosyn) (03/14/22 21:34) Medications Given in ED Current Medications Medications Dose Ordered Sig/Fide Route Start Time Stop Time Status Last Admin Dose Admin Azithromycin 1,000 mg ONCE ONCE PO 03/14/22 21:30 03/14/22 21:31 DC 03/14/22 21:30 1,000 MG Iohexol 100 ml ONCE ONCE IV 03/14/22 21:00 03/14/22 21:01 DC 03/14/22 21:05 80 ML Ketorolac Tromethamine 30 mg ONCE ONCE IVP 03/14/22 21:00 03/14/22 21:01 DC 03/14/22 20:57 30 MG Lactated Ringer's 1,000 ml @ 0 mls/hr Q0M ONCE IV 03/14/22 20:30 03/14/22 20:31 DC 03/14/22 20:29 0 MLS/HR Sodium Chloride 100 ml ONCE ONCE IV 03/14/22 21:00 03/14/22 21:01 DC 03/14/22 21:05 80 ML Vital Signs/I&O 03/14/22 03/14/22 19:24 21:40 Temp 37.2 36.6 Pulse 85 96 Resp 16 16 B/P (MAP) 111/74 (86) 126/85 Pulse Ox 98 95 O2 Delivery Room Air Room Air 03/15/22 00:00 Intake Total 1050 ml Balance 1050 ml Blood Pressure Mean: 86 Progress Progress Note : Progress Note GIVEN: -IV FLUIDS -TORADOL -ROCEPHIN + ZITHROMAX NO DETERIORATION IN PT'S CONDITION DURING ER STAY PT STATES SHE FEELS BETTER AT DISMISSAL. REVIEWED TEST RESULTS, AND PT NOW STATES THAT THIS FEELS LIKE WHEN SHE HAS HAD STD'S IN THE PAST--PT HAS HAD CHLAMYDIA, GONORRHEA, TRICHOMONAS, AND HERPES. DISCUSSED SYMPTOMATIC TREATMENT, NEED FOR FOLLOW UP AND RETURN PRECAUTIONS. ALSO DISCUSSED THE IMPORTANCE OF NO INTERCOURSE UNTIL SHE HIS RECHECKED AND CLEARED. Diagnostic Imaging Comments CT ABDOMEN/PELVIS--PER RADIOLOGIST REPORT AT 2121 FINDINGS: The visualized lung bases are clear. Tiny hiatal hernia. The liver, spleen, adrenal glands, and pancreas are unremarkable. The gallbladder is unremarkable. The right kidney is unremarkable. 3 mm calculus is noted within the superior pole of the left kidney. Otherwise, the left kidney is unremarkable. Additional 3 mm calcification is noted within the left pelvis. However, the distal left ureter is not optimally visualized. No left-sided hydronephrosis. No aneurysmal dilatation of the abdominal aorta. The appendix is unremarkable. The urinary bladder is unremarkable. The uterus and adnexal structures are unremarkable for age. Mild fat stranding is noted within the lower pelvis with trace free fluid without focal fluid collection. Mild colonic diverticulosis. No bowel obstruction. No free air. No acute osseous abnormality. IMPRESSION: Mild fat stranding and trace free fluid within the lower pelvis. Findings may simply relate to underlying ascites. Given inflammatory changes, pelvic inflammatory disease could be considered. 3 mm left renal calculus. 3 mm calculus within the left pelvis. This is of uncertain etiology though favored to relate to a phlebolith. A ureterolith cannot completely be excluded as the left ureter is difficult to visualize distally. There is however no evidence of hydronephrosis. Reviewed: Reviewed by Me Departure Impression Primary Impression: LLQ AND PELVIC PAIN Additional Impressions: POSSIBLE PID POSSIBLE KIDNEY STONE UTI (urinary tract infection) Disposition: HOME, SELF-CARE Condition: Stable Departure-Patient Inst. Decision time for Depature: 21:22 Referrals: [facility] (PCP/Family) Primary Care Physician Patient Instructions: Kidney Stone, Adult ED, Pelvic Inflammatory Disease (DC), Urinary Tract Infection, Adult (DC) Add. Discharge Instructions: NO INTERCOURSE OF ANY KIND UNTIL YOU ARE RECHECKED AND CLEARED FOLLOW UP WITH [facility] IN 2-3 DAYS FOR FURTHER CARE, RETURN TO ER IF WORSE All discharge instructions reviewed with patient and/or family. Voiced understanding. Scripts Ketorolac Tromethamine (Ketorolac Tromethamine) 10 Mg Tablet 10 MG PO Q6H for Pain, #15 TAB Prov: BONITA HINTON DO 03/14/22 Metronidazole (Metronidazole) 500 Mg Tablet 500 MG PO QID, #40 TAB 0 Refills Prov: ALISSA HINTONA K DO 03/14/22 Doxycycline Hyclate (Doxycycline Hyclate) 100 Mg Tablet 100 MG PO BID, #20 TAB 0 Refills Prov: BONITA HINTON K DO 03/14/22 BONITA HINTON DO Mar 14, 2022 20:29
[2022-03-14] MEDS ORDERED: LACTATED RINGERS 1,000 ML IV ONE (20:30)
[2022-03-14 20:31] LABS: BASOPHILS # (AUTO) 0.1 10^3/uL (0.0-0.1); BASOPHILS % (AUTO) 1 % (0-10); EOSINOPHILS # (AUTO) 0.1 10^3/uL (0.0-0.3); EOSINOPHILS % (AUTO) 1 % (0-10); HEMATOCRIT 41 % (35-52); HEMOGLOBIN 13.7 g/dL (11.5-16.0); LYMPHOCYTES # (AUTO) 4.4 10^3/uL (1.0-4.0); LYMPHOCYTES % (AUTO) 43 % (12-44); MEAN CORPUSCULAR HEMOGLOBIN 30 pg (25-34); MEAN CORPUSCULAR HGB CONC 33 g/dL (32-36); MEAN CORPUSCULAR VOLUME 89 fL (80-99); MEAN PLATELET VOLUME 11.5 fL (9.0-12.2); MONOCYTES # (AUTO) 0.6 10^3/uL (0.0-1.0); MONOCYTES % (AUTO) 6 % (0-12); NEUTROPHILS % (AUTO) 49 % (42-75); PLATELET COUNT 275 10^3/uL (130-400); WHITE BLOOD COUNT 10.2 10^3/uL (4.3-11.0)
[2022-03-14 20:34] LABS: BILIRUBIN,URINE NEGATIVE (NEGATIVE); CLARITY,URINE CLOUDY; COLOR,URINE YELLOW; GLUCOSE, URINE (UA) NEGATIVE (NEGATIVE); KETONES,URINE 1+ (NEGATIVE); LEUKOCYTE ESTERASE ,URINE NEGATIVE (NEGATIVE); NITRITE,URINE NEGATIVE (NEGATIVE); PROTEIN,URINE NEGATIVE (NEGATIVE)
[2022-03-14 20:45] LABS: AMORPHOUS SEDIMENT,UR FEW AMOR PHOSPHATE /LPF; BACTERIA,URINE FEW /HPF; WBC,URINE 0-2 /HPF
[2022-03-14 20:46] LABS: AMPHETAMINE SCREEN, URINE NEGATIVE (NEGATIVE); BARBITURATE SCREEN URINE NEGATIVE (NEGATIVE); BENZODIAZEPINES SCREEN URINE NEGATIVE (NEGATIVE); CANNABINOID SCREEN, URINE POSITIVE (NEGATIVE); COCAINE SCREEN URINE NEGATIVE (NEGATIVE); METHADONE STAT NEGATIVE (NEGATIVE); OPIATE SCREEN URINE NEGATIVE (NEGATIVE); OXYCODONE STAT NEGATIVE (NEGATIVE); PROPOXYPHENE STAT NEGATIVE (NEGATIVE); TRICYCLIC ANTIDEPRESSANTS SCRE NEGATIVE (NEGATIVE)
[2022-03-14 20:52] LABS: ALANINE AMINOTRANSFERASE 14 U/L (0-55); ALBUMIN 4.6 GM/DL (3.2-4.5); ALKALINE PHOSPHATASE 72 U/L (40-136); AMYLASE 52 U/L (25-125); BUN/CREATININE RATIO 16; CALCIUM 9.7 MG/DL (8.5-10.1); CARBON DIOXIDE 24 MMOL/L (21-32); CHLORIDE 107 MMOL/L (98-107); CREATININE SERUM 0.83 MG/DL (0.60-1.30); GFR ESTIMATED 101; GLUCOSE 95 MG/DL (70-105); LIPASE 27 U/L (8-78); SODIUM 141 MMOL/L (135-145); TOTAL PROTEIN 7.3 GM/DL (6.4-8.2)
[2022-03-14] MEDS ORDERED: NS 100 ML (IVPB) BAG IV ONE (21:00)
[2022-03-14] MEDS ORDERED: IOHEXOL 350 MG/ML 100 ML (OMNIPAQUE 350) VIAL IV ONE (21:00)
[2022-03-14] MEDS ORDERED: HOLD METFORMIN - RECEIVED CONTRAST 20 ML VIAL IV SCH (21:00)
[2022-03-14] MEDS ORDERED: KETOROLAC 30 MG/ML VIAL IVP ONE (21:00)
--- NOTE | 2022-03-14 21:17 | Diagnostic Imaging Report ---
PROCEDURE: CT abdomen and pelvis with contrast. TECHNIQUE: Multiple contiguous axial images were obtained through the abdomen and pelvis after administration of intravenous contrast. Auto Exposure Controls were utilized during the CT exam to meet ALARA standards for radiation dose reduction. All CT scans use one or more of the following dose optimizing techniques: automated exposure control, MA and/or KvP adjustment based on patient size and exam type or iterative reconstruction. INDICATION: Pelvic pain COMPARISON: None available. FINDINGS: The visualized lung bases are clear. Tiny hiatal hernia. The liver, spleen, adrenal glands, and pancreas are unremarkable. The gallbladder is unremarkable. The right kidney is unremarkable. 3 mm calculus is noted within the superior pole of the left kidney. Otherwise, the left kidney is unremarkable. Additional 3 mm calcification is noted within the left pelvis. However, the distal left ureter is not optimally visualized. No left-sided hydronephrosis. No aneurysmal dilatation of the abdominal aorta. The appendix is unremarkable. The urinary bladder is unremarkable. The uterus and adnexal structures are unremarkable for age. Mild fat stranding is noted within the lower pelvis with trace free fluid without focal fluid collection. Mild colonic diverticulosis. No bowel obstruction. No free air. No acute osseous abnormality. IMPRESSION: Mild fat stranding and trace free fluid within the lower pelvis. Findings may simply relate to underlying ascites. Given inflammatory changes, pelvic inflammatory disease could be considered. 3 mm nonobstructing left renal calculus. 3 mm calculus within the left pelvis. This is of uncertain etiology though favored to relate to a phlebolith. A ureterolith cannot completely be excluded as the left ureter is difficult to visualize distally. There is however no evidence of hydronephrosis. Dictated by: Dictated on workstation # [id number]
[2022-03-14] MEDS ORDERED: cefTRIAXone 1 GM PRE-MIX 50 ML IV SCH (21:30)
[2022-03-14] MEDS ORDERED: AZITHROMYCIN 250 MG TAB (ZITHROMAX) PO ONE (21:30)
[2022-03-14] MEDS ORDERED: KETO10TA PO (21:34)
[2022-03-14] MEDS ORDERED: RX-NAPROXEN (NAPROSYN) 250 MG TAB PPK#4 PO STA (21:34)
[2022-03-14] MEDS ORDERED: DOXY100T2 PO (21:34)
[2022-03-14] MEDS ORDERED: METR-145 PO (21:34)
[2022-03-14 21:40] VITALS: BP 126/85
== END 2022-03-14 21:42 | disposition home or self-care (01) ==
LOC: EDUNIT# 18:31 → ER 18:34
DX: N39.0 Urinary tract infection, site not specified (principal); Z28.310 Unvaccinated for COVID-19
CPT/HCPCS: 36415; 74177; 80053; 80306; 81000; 82150; 83690; 84703; 85025; 87088

== ENCOUNTER 2022-07-22 10:13 | Emergency (ER) | payer MEDICAID ==
[~2022-07-22] VITALS: Ht 162 cm; Wt 60.8 kg
[~2022-07-22 10:13] MED LIST changes: +DOXY100T2 PO; +KETO10TA PO; +METR-145 PO
--- NOTE | 2022-07-22 10:50 | ED Abdominal Pain ---
General Chief Complaint: Abdominal/GI Problems Stated Complaint: ABD PAIN|MENSTRAUL BLEEDING Source of Information: Patient Exam Limitations: No Limitations History of Present Illness Date Seen by Provider: Jul 22, 2022 Time Seen by Provider: 10:50 Allergies and Home Medications Allergies Coded Allergies: No Known Drug Allergies (Unverified , 01/12/18) Patient Home Medication List Benzocaine/Menthol (Dermoplast Pain Relieving [place]) 78 Gm Aerosol, 56 EA TP UD PRN for PAIN- SEE INSTRUCTIONS Prescribed by: JO ENCARNACION on 12/07/202246 Benzocaine/Menthol (Chloraseptic Sore Throat Lozng) 1 Each Lozenge, 1 JERAD MM Q4H PRN for Throat Irritation Prescribed by: JIAN ROSADO on 12/09/20924 Dibucaine (Dibucaine) 30 Gm Oint, 0 GM TOP UD PRN for PAIN- SEE INSTRUCTIONS Prescribed by: JO ENCARNACION on 12/07/202246 Docusate Sodium (Dok) 100 Mg Capsule, 100 MG PO BID PRN for CONSTIPATION-1ST LINE Prescribed by: JO ENCARNACION on 12/07/202246 Doxycycline Hyclate (Doxycycline Hyclate) 100 Mg Tablet, 100 MG PO BID Prescribed by: BONITA HINTON on 03/14/222133 Ferrous Sulfate (Ferosul) 325 Mg Tablet, 325 MG PO DAILY Prescribed by: JO ENCARNACION on 12/07/202246 Guaifenesin (Guaifenesin) 100 Mg/5 Ml Liquid, 200 MG PO QID PRN for COUGH Prescribed by: JIAN ROSADO on 12/09/20924 Hydrocodone Bit/Acetaminophen (HYDROcodone/APAP 5 MG/325 MG TAB) 1 Tab Tab, 1 EA PO Q4H PRN for PAIN-MODERATE (5-7) Prescribed by: JO ENCARNACION on 12/07/202247 Ibuprofen (Ibu) 600 Mg Tablet, 600 MG PO Q6HR Prescribed by: JO ENCARNACION on 12/07/202246 Ketorolac Tromethamine (Ketorolac Tromethamine) 10 Mg Tablet, 10 MG PO Q6H Prescribed by: BONITA HINTON on 03/14/222133 Metronidazole (Metronidazole) 500 Mg Tablet, 500 MG PO QID Prescribed by: BONITA HINTON on 03/14/222133 Past Fgviohe-Lukczb-Xumclu Hx Seasonal Allergies Seasonal Allergies: No Past Medical History Surgery/Hospitalization HX: T&A, Surgeries: Yes ([place] teeth) Adenoidectomy, Tonsillectomy Respiratory: No Cardiac: No Neurological: No Reproductive Disorders: No Female Reproductive Disorders: Denies Sexually Transmitted Disease: Yes (HERPES, TRICHOMONAS, GONORRHEA AND CHLAMYDIA. ) Genitourinary: No Gastrointestinal: Yes (ESOPHAGITIS "FROM AGE 7 TO 19" PER PT--NO EGD DONE) Esophagitis Musculoskeletal: No Endocrine: No HEENT: Yes (S/P T&A; WISDOM TEETH REMOVED) Tonsilitis Cancer: No Did You Recieve Any Treatments: No Psychosocial: No Integumentary: No Blood Disorders: No Physical Exam Vital Signs Vital Signs - First Documented 07/22/22 10:30 Temp 35.3 Pulse 80 Resp 15 B/P (MAP) 109/78 (88) Pulse Ox 100 O2 Delivery Room Air Capillary Refill : Height/Weight/BMI Height: 5'4.00" Weight: 152lbs. oz. 68.001126zh; 23.00 BMI Method:Stated Progress/Results/Core Measures Results/Orders Lab Results Laboratory Tests Test 07/22/22 10:45 Range/Units White Blood Count 6.0 4.3-11.0 10^3/uL Red Blood Count 4.70 3.80-5.11 10^6/uL Hemoglobin 14.1 11.5-16.0 g/dL Hematocrit 42 35-52 % Mean Corpuscular Volume 88 80-99 fL Mean Corpuscular Hemoglobin 30 25-34 pg Mean Corpuscular Hemoglobin Concent 34 32-36 g/dL Red Cell Distribution Width 12.5 10.0-14.5 % Platelet Count 256 130-400 10^3/uL Mean Platelet Volume 11.1 9.0-12.2 fL Immature Granulocyte % (Auto) 0 % Neutrophils (%) (Auto) 48 42-75 % Lymphocytes (%) (Auto) 42 12-44 % Monocytes (%) (Auto) 5 0-12 % Eosinophils (%) (Auto) 4 0-10 % Basophils (%) (Auto) 1 0-10 % Neutrophils # (Auto) 2.9 1.8-7.8 10^3/uL Lymphocytes # (Auto) 2.5 1.0-4.0 10^3/uL Monocytes # (Auto) 0.3 0.0-1.0 10^3/uL Eosinophils # (Auto) 0.2 0.0-0.3 10^3/uL Basophils # (Auto) 0.0 0.0-0.1 10^3/uL Immature Granulocyte # (Auto) 0.0 0.0-0.1 10^3/uL Urine Color YELLOW Urine Clarity CLEAR Urine pH 6.5 5-9 Urine Specific [place] 1.010 L 1.016-1.022 Urine Protein NEGATIVE NEGATIVE Urine Glucose (UA) NEGATIVE NEGATIVE Urine Ketones NEGATIVE NEGATIVE Urine Nitrite NEGATIVE NEGATIVE Urine Bilirubin NEGATIVE NEGATIVE Urine Urobilinogen 0.2 < = 1.0 MG/DL Urine Leukocyte Esterase 2+ H NEGATIVE Urine RBC (Auto) 2+ H NEGATIVE Urine RBC 0-2 /HPF Urine WBC 2-5 /HPF Urine Squamous Epithelial Cells 2-5 /HPF Urine Crystals NONE /LPF Urine Bacteria NEGATIVE /HPF Urine Casts NONE /LPF Urine Mucus NEGATIVE /LPF Urine Culture Indicated NO Urine Test NEGATIVE NEGATIVE Sodium Level 140 135-145 MMOL/L Potassium Level 4.0 3.6-5.0 MMOL/L Chloride Level 110 H 98-107 MMOL/L Carbon Dioxide Level 22 21-32 MMOL/L Anion Gap 8 5-14 MMOL/L Blood Urea Nitrogen 14 7-18 MG/DL Creatinine 0.76 0.60-1.30 MG/DL Estimat Glomerular Filtration Rate 112 BUN/Creatinine Ratio 18 Glucose Level 84 70-105 MG/DL Calcium Level 9.0 8.5-10.1 MG/DL My Orders Orders - SANAZ DURÁN MD Urine Bedside (07/22/22 10:57) Ua Culture If Indicated (07/22/22 10:57) Cbc With Automated Diff (07/22/22 10:57) Basic Metabolic Panel (07/22/22 10:57) Ed Iv/Invasive Line Start (07/22/22 10:57) Ketorolac Injection (Toradol Injection) (07/22/22 11:00) Ondansetron Injection (Zofran Injectio (07/22/22 11:00) Hcg,Qualitative Urine (07/22/22 11:56) Us Non Ob Pelvis Comp/Transvag (07/22/22 12:12) Medications Given in ED Current Medications Medications Dose Ordered Sig/Fide Route Start Time Stop Time Status Last Admin Dose Admin Ketorolac Tromethamine 15 mg ONCE ONCE IVP 07/22/22 11:00 07/22/22 11:01 DC 07/22/22 11:41 15 MG Ondansetron HCl 4 mg ONCE ONCE IVP 07/22/22 11:00 07/22/22 11:01 DC 07/22/22 11:41 4 MG Vital Signs/I&O 07/22/22 10:30 Temp 35.3 Pulse 80 Resp 15 B/P (MAP) 109/78 (88) Pulse Ox 100 O2 Delivery Room Air Departure Impression Primary Impression: Pelvic pain Disposition: HOME, SELF-CARE Condition: Improved Departure-Patient Inst. Decision time for Depature: 13:23 Referrals: [facility] (PCP/Family) Primary Care Physician Patient Instructions: Pelvic Pain ED Add. Discharge Instructions: Take the counter Aleve 2 tablets (500mg total) twice a day with food. This will help with pelvic pain. I have written you a prescription for tramadol, take 1 every 6 hours as needed for more severe pain. Keep your follow-up appointment with Dr. Encarnacion next week. Return to the emergency department for any worsening pain especially with fever, vomiting or any other emergent, concerning symptoms. Scripts Tramadol HCl (Tramadol HCl) 50 Mg Tablet 50 MG PO Q6H PRN for PAIN, #20 TAB 0 Refills Prov: SANAZ DURÁN MD 07/22/22 Copy Copies To 1: BERTO MANCILLA DO Copies To 2: JO ENCARNACION KATHRYN M MD Jul 22, 2022 10:50
[2022-07-22] MEDS ORDERED: ONDANSETRON 4 MG/2 ML (SDV) Z0FRAN IVP ONE (11:00)
[2022-07-22] MEDS ORDERED: KETOROLAC 15 MG/ML VIAL IVP ONE (11:00)
[2022-07-22 11:10] LABS: BASOPHILS % (AUTO) 1 % (0-10); EOSINOPHILS # (AUTO) 0.2 10^3/uL (0.0-0.3); EOSINOPHILS % (AUTO) 4 % (0-10); HEMATOCRIT 42 % (35-52); HEMOGLOBIN 14.1 g/dL (11.5-16.0); LYMPHOCYTES # (AUTO) 2.5 10^3/uL (1.0-4.0); LYMPHOCYTES % (AUTO) 42 % (12-44); MEAN CORPUSCULAR HEMOGLOBIN 30 pg (25-34); MEAN CORPUSCULAR HGB CONC 34 g/dL (32-36); MEAN CORPUSCULAR VOLUME 88 fL (80-99); MEAN PLATELET VOLUME 11.1 fL (9.0-12.2); MONOCYTES # (AUTO) 0.3 10^3/uL (0.0-1.0); MONOCYTES % (AUTO) 5 % (0-12); NEUTROPHILS # (AUTO) 2.9 10^3/uL (1.8-7.8); NEUTROPHILS % (AUTO) 48 % (42-75); PLATELET COUNT 256 10^3/uL (130-400)
[2022-07-22 11:12] LABS: BILIRUBIN,URINE NEGATIVE (NEGATIVE); CLARITY,URINE CLEAR; COLOR,URINE YELLOW; GLUCOSE, URINE (UA) NEGATIVE (NEGATIVE); KETONES,URINE NEGATIVE (NEGATIVE); LEUKOCYTE ESTERASE ,URINE 2+ (NEGATIVE); NITRITE,URINE NEGATIVE (NEGATIVE); PH,URINE 6.5 (5-9); PROTEIN,URINE NEGATIVE (NEGATIVE)
[2022-07-22 11:24] LABS: RBC,URINE 0-2 /HPF
[2022-07-22 11:25] LABS: BACTERIA,URINE NEGATIVE /HPF
[2022-07-22 11:37] LABS: CREATININE SERUM 0.76 MG/DL (0.60-1.30)
[2022-07-22] MEDS ORDERED: TRM50T PO ×2 (13:24→13:39)
--- NOTE | 2022-07-22 13:51 | Diagnostic Imaging Report ---
PROCEDURE: Pelvic comp/transvaginal sonogram. TECHNIQUE: Complete transabdominal and transvaginal pelvic ultrasound was performed. In addition, limited pelvic Doppler was performed. INDICATION: Left-sided pelvic pain. FINDINGS: Uterus is anteverted measuring 8.1 x 3.5 x 4.8 cm. Endometrium is 3 mm in thickness. No myometrial mass is detected. Right ovary measures 3.2 x 1.5 x 2.2 cm and the left ovary measures 3.8 x 1.7 x 1.7 cm. Both ovaries contain small follicles. There is blood flow to both ovaries. No adnexal mass or free fluid is detected. IMPRESSION: Unremarkable transabdominal and transvaginal pelvic ultrasound with limited pelvic Doppler. Dictated by: Dictated on workstation # [id number]
[2022-07-22 13:52] VITALS: BP 106/76
== END 2022-07-22 13:57 | disposition home or self-care (01) ==
LOC: EDUNIT# 10:13 → ER 10:18
DX: R10.2 Pelvic and perineal pain (principal)
CPT/HCPCS: 36415; 76830; 76856; 80048; 81000; 84703; 85025

== ENCOUNTER 2023-03-12 11:07 | Emergency (ER) | payer SELFPAY ==
[~2023-03-12] VITALS: Ht 162 cm; Wt 56.0 kg
[~2023-03-12 11:07] MED LIST changes: +TRM50T PO
--- NOTE | 2023-03-12 11:26 | ED Abdominal Pain ---
General Stated Complaint: VAGINAL BLEEDING | HX OF ENDOMETRIOSIS Source of Information: Patient Exam Limitations: No Limitations History of Present Illness Date Seen by Provider: Mar 12, 2023 Time Seen by Provider: 11:23 Initial Comments Patient is a 27-year-old female with a history of ovarian cyst, endometriosis who presents to the ED for severe lower abdominal pain in her pelvic as well as heavy vaginal bleeding. Vaginal bleeding started this morning. She reports initially heavy bright red blood. She is currently on her third pad. Now she reports some mild spotting. Severe lower abdominal cramping, low back pain. She states she had 3 syncopal episodes this morning secondary to the pain. She states she feels nauseous without any diarrhea. Chills feels feverish. Denies of any pain with urination frequent urination, vaginal discharge. Not currently on control. She states she has seen a die trimmer diagnosed with endometriosis and was recommend starting control but she wants a ablation. She has not followed up with Dr. MONAE for several months. She denies any concern for STDs. She states she was diagnosed with endometriosis this past year. She denies chest pain, shortness of breath, cough, sore throat, ear pain, headache pain with urination, frequent urination, Allergies and Home Medications Allergies Coded Allergies: No Known Drug Allergies (Unverified , 01/12/18) Patient Home Medication List Home Medication List Reviewed: Yes Benzocaine/Menthol (Dermoplast Pain Relieving [place]) 78 Gm Aerosol, 56 EA TP UD PRN for PAIN- SEE INSTRUCTIONS Prescribed by: JO HELTON on 12/07/202246 Benzocaine/Menthol (Chloraseptic Sore Throat Lozng) 1 Each Lozenge, 1 JERAD MM Q4H PRN for Throat Irritation Prescribed by: JIAN ROSADO on 12/09/20 0925 Cephalexin (Cephalexin) 500 Mg Tablet, 500 MG PO BID Prescribed by: OLLIE RODRIGUEZ on 03/12/23 1301 Dibucaine (Dibucaine) 30 Gm Oint, 0 GM TOP UD PRN for PAIN- SEE INSTRUCTIONS Prescribed by: JO HELTON on 12/07/202246 Docusate Sodium (Dok) 100 Mg Capsule, 100 MG PO BID PRN for CONSTIPATION-1ST LINE Prescribed by: JO HELTON on 12/07/202246 Doxycycline Hyclate (Doxycycline Hyclate) 100 Mg Tablet, 100 MG PO BID Prescribed by: BONITA HINTON on 03/14/222133 Ferrous Sulfate (Ferosul) 325 Mg Tablet, 325 MG PO DAILY Prescribed by: JO HELTON on 12/07/202246 Guaifenesin (Guaifenesin) 100 Mg/5 Ml Liquid, 200 MG PO QID PRN for COUGH Prescribed by: JIAN ROSADO on 12/09/20 0925 Hydrocodone Bit/Acetaminophen (HYDROcodone/APAP 5 MG/325 MG TAB) 1 Tab Tab, 1 EA PO Q4H PRN for PAIN-MODERATE (5-7) Prescribed by: JO HELTON on 12/07/202247 Ibuprofen (Ibu) 600 Mg Tablet, 600 MG PO Q6HR Prescribed by: JO HELTON on 12/07/202246 Ibuprofen (Ibuprofen) 600 Mg Tablet, 600 MG PO Q6H Prescribed by: OLLIE RODRIGUEZ on 03/12/23 1301 Ketorolac Tromethamine (Ketorolac Tromethamine) 10 Mg Tablet, 10 MG PO Q6H Prescribed by: BONITA HINTON on 03/14/222133 Metronidazole (Metronidazole) 500 Mg Tablet, 500 MG PO QID Prescribed by: BONITA HINTON on 03/14/222133 Tramadol HCl (Tramadol HCl) 50 Mg Tablet, 50 MG PO Q6H PRN for PAIN Prescribed by: SANAZ DURÁN on 07/22/22 1339 Review of Systems Review of Systems Constitutional: No chills, No diaphoresis; fever, malaise, weakness EENTM: No Blurred Vision, No Double Vision, No Eye Pain Respiratory: Denies Cough, Denies Orthopnea Cardiovascular: Denies Chest Pain Gastrointestinal: Abdominal Pain; Denies Diarrhea; Nausea; Denies Vomiting Genitourinary: Denies Burning, Denies Discharge, Denies Drainage, Denies Frequency, Denies Flank Pain Musculoskeletal: No back pain, No joint pain Skin: No change in color, No change in hair/nails All Other Systems Reviewed Negative Unless Noted: Yes Past Naehzfc-Dyecna-Yqnltv Hx Seasonal Allergies Seasonal Allergies: No Past Medical History Surgery/Hospitalization HX: T&A, Surgeries: Yes ([place] teeth) Adenoidectomy, Tonsillectomy Respiratory: No Cardiac: No Neurological: No Reproductive Disorders: No Female Reproductive Disorders: Denies Sexually Transmitted Disease: Yes (HERPES, TRICHOMONAS, GONORRHEA AND CHLAMYDIA. ) Genitourinary: No Gastrointestinal: Yes (ESOPHAGITIS "FROM AGE 7 TO 19" PER PT--NO EGD DONE) Esophagitis Musculoskeletal: No Endocrine: No HEENT: Yes (S/P T&A; WISDOM TEETH REMOVED) Tonsilitis Cancer: No Did You Recieve Any Treatments: No Psychosocial: No Integumentary: No Blood Disorders: No Physical Exam Vital Signs Vital Signs - First Documented 03/12/23 11:15 Temp 36.4 Pulse 95 Resp 16 B/P (MAP) 125/85 (98) Pulse Ox 100 O2 Delivery Room Air Capillary Refill : Height/Weight/BMI Height: 5'4.00" Weight: 152lbs. oz. 68.839043bf; 23.00 BMI Method:Stated General Appearance: WD/WN, no apparent distress HEENT: PERRL/EOMI, normal ENT inspection, TMs normal, pharynx normal Neck: non-tender, full range of motion, supple Respiratory: chest non-tender, lungs clear, normal breath sounds, no respiratory distress, no accessory muscle use Cardiovascular: regular rate, rhythm, no edema, no gallop, no JVD Gastrointestinal: normal bowel sounds, soft, no organomegaly, tenderness (Right and left lower quadrant tenderness. Normal bowel sounds throughout. 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, no motor/sensory deficits, alert, normal mood/affect, oriented x 3 Skin: normal color, warm/dry Progress/Results/Core Measures Results/Orders Lab Results Laboratory Tests Test 03/12/23 11:22 03/12/23 12:27 Range/Units White Blood Count 5.7 4.3-11.0 10^3/uL Red Blood Count 4.40 3.80-5.11 10^6/uL Hemoglobin 13.3 11.5-16.0 g/dL Hematocrit 39 35-52 % Mean Corpuscular Volume 89 80-99 fL Mean Corpuscular Hemoglobin 30 25-34 pg Mean Corpuscular Hemoglobin Concent 34 32-36 g/dL Red Cell Distribution Width 12.9 10.0-14.5 % Platelet Count 242 130-400 10^3/uL Mean Platelet Volume 11.2 9.0-12.2 fL Immature Granulocyte % (Auto) 0 % Neutrophils (%) (Auto) 42 42-75 % Lymphocytes (%) (Auto) 49 H 12-44 % Monocytes (%) (Auto) 6 0-12 % Eosinophils (%) (Auto) 2 0-10 % Basophils (%) (Auto) 1 0-10 % Neutrophils # (Auto) 2.4 1.8-7.8 10^3/uL Lymphocytes # (Auto) 2.8 1.0-4.0 10^3/uL Monocytes # (Auto) 0.4 0.0-1.0 10^3/uL Eosinophils # (Auto) 0.1 0.0-0.3 10^3/uL Basophils # (Auto) 0.1 0.0-0.1 10^3/uL Immature Granulocyte # (Auto) 0.0 0.0-0.1 10^3/uL Prothrombin Time 13.5 12.2-14.7 SEC INR Comment 1.0 0.8-1.4 Activated Partial Thromboplast Time 30 24-35 SEC Sodium Level 140 135-145 MMOL/L Potassium Level 3.7 3.6-5.0 MMOL/L Chloride Level 109 H 98-107 MMOL/L Carbon Dioxide Level 21 21-32 MMOL/L Anion Gap 10 5-14 MMOL/L Blood Urea Nitrogen 10 7-18 MG/DL Creatinine 0.77 0.60-1.30 MG/DL Estimat Glomerular Filtration Rate 110 BUN/Creatinine Ratio 13 Glucose Level 85 70-105 MG/DL Calcium Level 9.2 8.5-10.1 MG/DL Corrected Calcium 8.9 8.5-10.1 MG/DL Total Bilirubin 1.6 H 0.1-1.0 MG/DL Aspartate Amino Transf (AST/SGOT) 14 5-34 U/L Alanine Aminotransferase (ALT/SGPT) 14 0-55 U/L Alkaline Phosphatase 50 40-136 U/L Total Protein 7.3 6.4-8.2 GM/DL Albumin 4.4 3.2-4.5 GM/DL Serum Test, Qualitative NEGATIVE NEGATIVE Urine Color YELLOW Urine Clarity CLEAR Urine pH 6.5 5-9 Urine Specific [place] 1.010 L 1.016-1.022 Urine Protein TRACE H NEGATIVE Urine Glucose (UA) NEGATIVE NEGATIVE Urine Ketones 2+ H NEGATIVE Urine Nitrite NEGATIVE NEGATIVE Urine Bilirubin NEGATIVE NEGATIVE Urine Urobilinogen 0.2 < = 1.0 MG/DL Urine Leukocyte Esterase 1+ H NEGATIVE Urine RBC (Auto) 3+ H NEGATIVE Urine RBC 2-5 H /HPF Urine WBC 5-10 H /HPF Urine Squamous Epithelial Cells 5-10 /HPF Urine Crystals NONE /LPF Urine Bacteria FEW H /HPF Urine Casts NONE /LPF Urine Mucus NEGATIVE /LPF Urine Culture Indicated YES Urine Test NEGATIVE NEGATIVE My Orders Orders - GORGE MCMAHAN Ua Culture If Indicated (03/12/23 11:11) Hcg,Qualitative Serum (03/12/23 11:11) Cbc And Automated Diff (03/12/23 11:14) Comprehensive Metabolic Panel (03/12/23 11:14) Hcg,Qualitative Urine (03/12/23 11:14) Ketorolac Injection (Ketorolac Injection (03/12/23 11:30) Partial Thromboplastin Time (03/12/23 11:21) Protime With Inr (03/12/23 11:21) Morphine Injection (Morphine Injection (03/12/23 12:15) Ondansetron Injection (Ondansetron Inj (03/12/23 12:15) Us Pelvic (Non Ob)02257 (03/12/23 11:21) Hydrocodone/Apap 5/325 Tablet (Hydrocod (03/12/23 12:30) Urine Culture (03/12/23 12:27) Medications Given in ED Current Medications Medications Dose Ordered Sig/Fide Route Start Time Stop Time Status Last Admin Dose Admin Acetaminophen/ Hydrocodone Bitart 1 ea ONCE ONCE PO 03/12/23 12:30 03/12/23 12:31 DC 03/12/23 12:32 1 EA Ketorolac Tromethamine 30 mg ONCE ONCE IVP 03/12/23 11:30 03/12/23 11:31 DC 03/12/23 11:33 30 MG Ondansetron HCl 4 mg ONCE ONCE IVP 03/12/23 12:15 03/12/23 12:16 DC 03/12/23 12:17 4 MG Vital Signs/I&O 12/6/23 12/6/23 11:15 13:16 Temp 36.4 Pulse 95 82 Resp 16 16 B/P (MAP) 125/85 (98) 100/69 Pulse Ox 100 98 O2 Delivery Room Air Room Air Departure Communication (PCP) Reviewed previous ER visits, H&P, lab testing. Differential diagnosis ectopic , threatened miscarriage, endometriosis, PID, TOA, UTI. Was seen here in July with similar type pelvic pain. She has follow-up with Dr. MONAE gynecology in the past. She states she has a history of endometriosis. Started her menstrual cycle 10 days early. Concern for potential miscarriage. Not currently on control. Lower pelvic pain started this morning with low back pain. She has went through 3 pads but states her last pad has been slightly pinkish. She does not appear to be actively hemorrhaging. She refused pelvic exam. She is not concern for sexual transmitted faction. No specific urinary symptoms. CBC, CMP, coags, urinalysis with test. She is negative for . Urinalysis concern for UTI. She is afebrile. Normal white blood count hemoglobin. Chemistry was grossly unremarkable. Ultrasound was ordered to rule out ovarian torsion. Ultrasound was negative for acute abnormality. She did receive Toradol initially without much improvement. She did receive a dose of hydrocodone. She is states pain appears to be improving. At this time recommend gynecology outpatient follow-up. She does not want to start control which she would likely benefit in more conservative management of endometriosis. She is wanting an endometrial ablation. She needs to follow-up with gynecology for further evaluation. Continue with ibuprofen. Zofran for nausea. Discharge Keflex for UTI. Follow-up with PCP 2 to 3 days for reevaluation. Impression Primary Impression: Pelvic pain Disposition: HOME, SELF-CARE Condition: Stable Departure-Patient Inst. Decision time for Depature: 12:34 Referrals: [facility] (PCP/Family) Primary Care Physician KRYSTINA RICH DO Patient Instructions: Pelvic Pain ED Add. Discharge Instructions: Take antibiotics as prescribed. Can continue with ibuprofen for pain. Follow- up with gynecology outpatient. Suggest rechecking your hemoglobin with your primary in the next 2 or 3 days if bleeding worsens. Scripts Cephalexin (Cephalexin) 500 Mg Tablet 500 MG PO BID for 7 Days, #14 TAB Prov: GORGE MCMAHAN 03/12/23 Ibuprofen (Ibuprofen) 600 Mg Tablet 600 MG PO Q6H for PAIN, #20 TAB 0 Refills Prov: GORGE MCMAHAN 03/12/23 GORGE MCMAHAN Mar 12, 2023 11:26
[2023-03-12] MEDS ORDERED: KETOROLAC INJ 30 MG/ML VIAL IVP ONE (11:30)
[2023-03-12 11:31] LABS: BASOPHILS # (AUTO) 0.1 10^3/uL (0.0-0.1); BASOPHILS % (AUTO) 1 % (0-10); EOSINOPHILS # (AUTO) 0.1 10^3/uL (0.0-0.3); EOSINOPHILS % (AUTO) 2 % (0-10); HEMATOCRIT 39 % (35-52); HEMOGLOBIN 13.3 g/dL (11.5-16.0); LYMPHOCYTES # (AUTO) 2.8 10^3/uL (1.0-4.0); LYMPHOCYTES % (AUTO) 49 % (12-44); MEAN CORPUSCULAR HEMOGLOBIN 30 pg (25-34); MEAN CORPUSCULAR HGB CONC 34 g/dL (32-36); MEAN CORPUSCULAR VOLUME 89 fL (80-99); MEAN PLATELET VOLUME 11.2 fL (9.0-12.2); MONOCYTES # (AUTO) 0.4 10^3/uL (0.0-1.0); MONOCYTES % (AUTO) 6 % (0-12); NEUTROPHILS # (AUTO) 2.4 10^3/uL (1.8-7.8); NEUTROPHILS % (AUTO) 42 % (42-75); PLATELET COUNT 242 10^3/uL (130-400); WHITE BLOOD COUNT 5.7 10^3/uL (4.3-11.0)
[2023-03-12 11:42] LABS: ALBUMIN 4.4 GM/DL (3.2-4.5); POTASSIUM 3.7 MMOL/L (3.6-5.0)
[2023-03-12 11:43] LABS: CALCIUM 9.2 MG/DL (8.5-10.1)
[2023-03-12 11:44] LABS: PROTHROMBIN TIME PATIENT 13.5 SEC (12.2-14.7); TOTAL PROTEIN 7.3 GM/DL (6.4-8.2)
[2023-03-12 11:46] LABS: BILIRUBIN,TOTAL 1.6 MG/DL (0.1-1.0)
[2023-03-12 11:48] LABS: CREATININE SERUM 0.77 MG/DL (0.60-1.30)
[2023-03-12] MEDS ORDERED: morphine INJ 10 MG/ML 1ML (SYR OR VIAL) IVP ONE (12:15)
[2023-03-12] MEDS ORDERED: ONDANSETRON INJECTION 4 MG/2 ML (SDV) IVP ONE (12:15)
[2023-03-12] MEDS ORDERED: HYDROcodone/ACETAMINOPHEN 5 MG/325 MG TABLET PO ONE (12:30)
--- NOTE | 2023-03-12 12:47 | Diagnostic Imaging Report ---
PROCEDURE: US PELVIC (NON OB). TECHNIQUE: Multiple real-time grayscale images were obtained over the pelvis in various projections transabdominally. INDICATION: Abdominal pain. FINDINGS: Color Doppler blood flow to the adnexa is normal. No ovarian mass. The uterus is unremarkable. There is no abnormal endometrial pathology. No ascites. No acute fluid collection. Endometrium is 5.9 mm thick and normal. IMPRESSION: Normal pelvic ultrasound. Dictated by: Dictated on workstation # [id number]
[2023-03-12 12:49] LABS: CLARITY,URINE CLEAR; COLOR,URINE YELLOW; PH,URINE 6.5 (5-9); PROTEIN,URINE TRACE (NEGATIVE)
[2023-03-12 12:50] LABS: BACTERIA,URINE FEW /HPF; BILIRUBIN,URINE NEGATIVE (NEGATIVE); GLUCOSE, URINE (UA) NEGATIVE (NEGATIVE); KETONES,URINE 2+ (NEGATIVE); LEUKOCYTE ESTERASE ,URINE 1+ (NEGATIVE); NITRITE,URINE NEGATIVE (NEGATIVE)
[2023-03-12] MEDS ORDERED: CEPH500T PO (13:01)
[2023-03-12] MEDS ORDERED: IBUP-1773 PO (13:01)
[2023-03-12 13:16] VITALS: BP 100/69
== END 2023-03-12 13:15 | disposition home or self-care (01) ==
LOC: EDUNIT# 11:07 → ER 11:09
DX: R10.2 Pelvic and perineal pain (principal); R11.0 Nausea
CPT/HCPCS: 36415; 76856; 80053; 81000; 84703; 85025; 85610; 85730; 87088; 99283